=== PATIENT | female | born 1975 | race Caucasian/White ===

== ENCOUNTER 2019-11-29 09:39 | Emergency (ER) | payer MEDICAID, SELFPAY ==
[2019-11-29 10:06] VITALS: BP 118/72; PULSE 87; RESP 18; TEMP 36.8; O2SAT 98; BMI 29.0
--- NOTE | 2019-11-29 10:08 | ED_ITS ---
HPI - Abdominal Pain General Chief Complaint: Abdominal Pain Stated Complaint: FLANK PAIN Time Seen by Provider: 11/29/19 10:08 Source: patient Mode of arrival: ambulatory Limitations: no limitations History of Present Illness MD elicited complaint: flank pain Pertinent past history: kidney stones Onset (ago): week(s) (2) Pain Consistency: constant Location: R flank Severity: severe Quality: sharp Radiation: none Migration to: no migration Exacerbating factors: nothing Relieving factors: nothing Associated symptoms: nausea Treatments prior to arrival: NSAIDs Related Data Previous Rx's Medication Instructions Recorded hydrocodone-acetaminophen 1 tab PO Q8H PRN #7 tab 11/29/19 Allergies Allergy/AdvReac Type Severity Reaction Status Date / Time erythromycin base Allergy Severe THROAT Unverified 11/14/19 15:14 [Erythromycin Base] CLOSES melon Allergy Severe SHORTNESS Unverified 11/14/19 15:14 OF BREATH penicillin G [Penicillin G] Allergy Severe THROAT Unverified 11/14/19 15:14 CLOSES latex [Latex] Allergy Mild BLISTERS Unverified 11/14/19 15:14 adhesive tape Allergy Unknown RASH Unverified 11/14/19 15:14 cephalexin [Keflex] Allergy Unknown Verified 01/10/17 00:00 duloxetine [From CYMBALTA] Allergy Unknown UNKNOWN Unverified 11/14/19 15:14 lithium [LITHIUM] Allergy Unknown RASH Unverified 11/14/19 15:14 methylphenidate [Ritalin] Allergy Unknown Verified 01/10/17 00:00 penicillin V Allergy Unknown Unverified 12/11/18 00:00 Sulfa (Sulfonamide Allergy Unknown Unverified 12/11/18 00:00 Antibiotics) meperidine [From Demerol] AdvReac Mild VIOLENT Unverified 11/14/19 15:14 BEHAVIOR prochlorperazine AdvReac Mild WEAKNESS Unverified 11/14/19 15:14 [From Compazine] sulfamethoxazole AdvReac Mild VOMITING Unverified 11/14/19 15:14 [From Bactrim] trimethoprim [From Bactrim] AdvReac Mild VOMITING Unverified 11/14/19 15:14 From KEFLEX Allergy Severe SHORTNESS Uncoded 11/14/19 15:14 OF BREATH Erythrocin Allergy Unknown Uncoded 12/11/18 00:00 Erythromycin Allergy Unknown Uncoded 01/10/17 00:00 From Ritalin Allergy Unknown MANIC Uncoded 11/14/19 15:14 REACTION Latex Allergy Unknown Uncoded 01/10/17 00:00 Latex Gloves Allergy Unknown Uncoded 12/11/18 00:00 Homeland Carbonate Allergy Unknown Uncoded 01/10/17 00:00 [place] Citrate Allergy Unknown Uncoded 12/11/18 00:00 methatrexi Allergy Unknown Uncoded 01/10/17 00:00 tape, adhesive Allergy Unknown Uncoded 01/10/17 00:00 From Ginseng Edge AdvReac Unknown SHORTNESS Uncoded 11/14/19 15:14 OF BREATH Review of Systems Review of Systems Constitutional : No Weight loss, No Fever, No Chills ENT/Mouth : No sore throat, No Rhinorrhea Eyes: No Swelling, No Redness Cardiovascular : No Chest Pain, No SOB, NoEdema Respiratory : No Cough, No Sputum, No Wheezing Gastrointestinal : Positive Nausea, Positive Vomiting, no Diarrhea, positive abdominal Pain, No Hematochezia, No Melena Genitourinary : No Dysuria, No Urinary Frequency, positive Hematuria, pos Urgency Musculoskeletal : No joint pain, No Myalgias, No Joint Swelling Skin : No Skin Lesions, No rash Neuro : No Weakness, No Numbness, No Dizziness, No Headache Psych : No Anxiety/Panic, No Depression Heme/Lymph: No Bruising, No Lymphadenopathy Endocrine : No Polyuria, No Polydipsia All other systems reviewed and are negative. Physical Exam Vital Signs and I&O and Narrative: Vital Signs and I&O: Vital Signs Temp 98.3 F 11/29/19 10:06 Pulse 87 11/29/19 10:06 Resp 18 11/29/19 10:06 BP 118/72 11/29/19 10:06 Pulse Ox 98 11/29/19 10:06 Intake & Output 11/28/19 11/29/19 11/29/19 18:59 06:59 18:59 Intake Total 83.25 / 83.25 Balance 83.25 / 83.25 Weight 94.602 kg Intake: Intake, IV Amoun t 83.25 / 83.25 0.9 % Sodium C hloride 1,000 ml 83.25 / 83.25 @ 999 mls/hr I VCONT .Q1H1M [facility] Rx#:[id number] Body Mass Index 29.0 Appearance: Alert. Oriented X3. in pain mild acute distress. Eyes: Pupils equal, round and reactive to light. ENT: Pharynx normal. Neck: Normal inspection. Neck supple. CVS: Normal heart rate and rhythm. Pulses normal. Respiratory: No respiratory distress. Breath sounds normal. Abdomen: Soft and moderate R sided and R CVA ttp Skin: Skin warm and dry. Normal skin color. Normal skin turgor. Extremities: No lower extremity edema. No lower extremity edema. Neuro: Oriented X 3. No motor deficit. No sensory deficit. Course Reevaluation(s) Reevaluation #1: no acute findings stable for DC MDM - Abdominal Pain MDM Narrative Medical decision making narrative: patient with R sided flank pain recent stone R sided 2mm UVJ here with persistent pain n/v - will need repeat imaging and IV morphine for pain, dispo per results and findings Lab Data Result diagrams: 11/29/19 10:24 11/29/19 10:24 Labs: Lab Results 11/29/19 11/29/19 11/29/19 Range/Units 10:24 10:24 10:24 WBC 3.6 L (4.8-10.8) X10*3/uL RBC 4.10 L (4.20-5.50) X10*6/uL Hgb 13.3 (12.0-16.0) g/dl Hct 38.8 (37-47) % MCV 94.6 (80-98) fL MCH 32.4 (27.0-33.0) pg MCHC 34.3 (31.0-35.0) g/dl RDW 13.2 (11.0-16.0) % Plt Count 309 (160-400) X10*3/uL MPV 10.1 (9.4-12.3) fL Immature Gran % (Auto) 0.3 (0.0-0.4) % Neut % (Auto) 32.3 L (45-73) % Lymph % (Auto) 55.0 H (20-40) % [place] % (Auto) 9.4 (2-11) % Eos % (Auto) 2.2 (0-4) % Baso % (Auto) 0.8 (0-2) % Neut # (Auto) 1.2 L (2.0-8.3) X10*3/uL Lymph # (Auto) 2.0 (1.2-4.9) X10*3/uL [place] # (Auto) 0.3 (0.1-1.2) X10*3/uL Eos # (Auto) 0.1 (0.0-0.4) X10*3/uL Baso # (Auto) 0.0 (0.0-0.2) X10*3/uL Abs Immat Gran (auto) 0.01 (0.00-0.03) X10*3/uL Absolute Nucleated RBC 0.000 (0.0-0.012) X10*3/uL Nucleated RBC % (auto) 0.0 (0.0-0.2) /100WBC Hold Blue Top SEE NOTE Sodium (135-145) mmol/L Potassium (3.3-5.1) mmol/l Chloride (96-108) mmol/L Carbon Dioxide (22-29) mmol/L Anion Gap (12-20) BUN (9-16) mg/dL Creatinine (0.5-1.4) mg/dL Estim Creat Clear Calc Estimated GFR Random Glucose (60-115) mg/dL Calcium (8.4-10.2) mg/dL Magnesium (1.6-2.6) mg/dL Total Bilirubin (0.0-1.0) mg/dL Direct Bilirubin (0.0-0.5) mg/dL AST (5-31) U/L ALT (0-31) U/L Alkaline Phosphatase (39-117) U/L Total Protein (6.5-8.0) g/dL Albumin (3.5-5.0) g/dL Lipase (8-78) U/L Urine Color YELLOW Urine Appearance HAZY Urine pH 5.5 (5.0-8.0) Ur Specific [place] >= 1.030 H (1.005-1.025) Urine Protein NEG (NEG-TRACE) MG/DL Urine Glucose (UA) NEG (NEG) MG/DL Urine Ketones 5 (NEG) MG/DL Urine Blood NEG (NEG) Urine Nitrite NEG (NEG) Ur Leukocyte Esterase NEG (NEG) 11/29/19 Range/Units 10:24 WBC (4.8-10.8) X10*3/uL RBC (4.20-5.50) X10*6/uL Hgb (12.0-16.0) g/dl Hct (37-47) % MCV (80-98) fL MCH (27.0-33.0) pg MCHC (31.0-35.0) g/dl RDW (11.0-16.0) % Plt Count (160-400) X10*3/uL MPV (9.4-12.3) fL Immature Gran % (Auto) (0.0-0.4) % Neut % (Auto) (45-73) % Lymph % (Auto) (20-40) % [place] % (Auto) (2-11) % Eos % (Auto) (0-4) % Baso % (Auto) (0-2) % Neut # (Auto) (2.0-8.3) X10*3/uL Lymph # (Auto) (1.2-4.9) X10*3/uL [place] # (Auto) (0.1-1.2) X10*3/uL Eos # (Auto) (0.0-0.4) X10*3/uL Baso # (Auto) (0.0-0.2) X10*3/uL Abs Immat Gran (auto) (0.00-0.03) X10*3/uL Absolute Nucleated RBC (0.0-0.012) X10*3/uL Nucleated RBC % (auto) (0.0-0.2) /100WBC Hold Blue Top Sodium 140 (135-145) mmol/L Potassium 4.1 (3.3-5.1) mmol/l Chloride 110 H (96-108) mmol/L Carbon Dioxide 22 (22-29) mmol/L Anion Gap 12 (12-20) BUN 8 L (9-16) mg/dL Creatinine 0.92 (0.5-1.4) mg/dL Estim Creat Clear Calc 98.9 Estimated GFR > 60 Random Glucose 107 (60-115) mg/dL Calcium 9.4 (8.4-10.2) mg/dL Magnesium 1.9 (1.6-2.6) mg/dL Total Bilirubin 0.5 (0.0-1.0) mg/dL Direct Bilirubin 0.2 (0.0-0.5) mg/dL AST 22 (5-31) U/L ALT 29 (0-31) U/L Alkaline Phosphatase 54 (39-117) U/L Total Protein 6.6 (6.5-8.0) g/dL Albumin 4.4 (3.5-5.0) g/dL Lipase 20 (8-78) U/L Urine Color Urine Appearance Urine pH (5.0-8.0) Ur Specific [place] (1.005-1.025) Urine Protein (NEG-TRACE) MG/DL Urine Glucose (UA) (NEG) MG/DL Urine Ketones (NEG) MG/DL Urine Blood (NEG) Urine Nitrite (NEG) Ur Leukocyte Esterase (NEG) Discharge Plan Discharge Clinical Impression: Acute flank pain, Renal colic on right side Patient Disposition: Home, Self-Care Instructions: Renal Colic (ED) Additional Instructions: please follow up with urologist as scheduled Prescriptions: New hydrocodone-acetaminophen 5-325 mg tablet 1 tab PO Q8H PRN (Reason: pain) Qty: 7 RF: 0 PMFSH Past Medical History Attestation statement: The following information was validated with the patient. Medical History Bipolar 1 disorder Interstitial cystitis Irritable bowel Lupus Rheumatoid arthritis Surgical History H/O: hysterectomy Social History Social History Alcohol intake: unknown Smoking Status: Never smoker Smoked in Last 30 Days: No Use of substances other than those prescribed or required for medical reasons: No Advance Directives: No Advance Directives Information Provided: Yes
--- NOTE | 2019-11-29 10:14 | CT_ITS ---
EXAMINATION: CT ABDOMEN AND PELVIS WITHOUT CONTRAST CLINICAL INFORMATION: Right flank pain. COMPARISON: CT abdomen and pelvis dated 11/16/2019. TECHNIQUE: Multidetector volumetric imaging was performed from the superior aspect of the liver through the pubic symphysis. Sagittal and coronal reformatted images were obtained on the technologist's workstation. This CT examination was performed using dose optimization techniques as appropriate, variously including the following: *Automated exposure control *Adjustment of mA and/or kV according to patient size (this includes techniques or standardized protocols for targeted exams where dose is matched to indication/reason for exam; i.e. extremities or head) *Use of iterative reconstruction technique DLP: 735 mGy-cm FINDINGS: LUNG BASES: The visualized lung bases are unremarkable. LIVER, GALLBLADDER, AND BILIARY TREE: The liver is normal in size, shape, and attenuation. No focal hepatic lesion or biliary ductal dilatation is present. The gallbladder is unremarkable with no evidence of radiopaque gallstones, gallbladder wall thickening, or obvious pericholecystic inflammatory changes. PANCREAS: Unremarkable. SPLEEN: Unremarkable. ADRENAL GLANDS: Unremarkable. KIDNEYS AND URETERS: The kidneys are normal in size, shape, and attenuation. There are approximately 3 right renal upper and lower pole 1-2 mm nonobstructing calculi. There is a nonobstructing 1-2 mm mid left renal calculus. No ureteric calculus or obstructive uropathy is seen bilaterally. There is mild nonspecific perinephric stranding, left greater than right. BLADDER: Unremarkable. GASTROINTESTINAL TRACT: The small and large bowel are unremarkable. The appendix is unremarkable. ABDOMINAL WALL: There is a very small fat-containing umbilical hernia. LYMPH NODES: Normal. VASCULAR: Unremarkable. PELVIC VISCERA: There has been a prior hysterectomy. No pelvic mass, free fluid lymphadenopathy is seen. OSSEOUS STRUCTURES: There is mild spondylosis at T12-L1. No acute or aggressive osseous abnormality is seen. IMPRESSION: 1. There are tiny nonobstructing bilateral renal calculi. No ureteric calculus or obstructive uropathy seen bilaterally. 2. No bowel obstruction, free intraperitoneal or abscess is seen. There is no appendicitis or diverticulitis. 3. No abdominopelvic mass, free fluid or lymphadenopathy is seen.
[2019-11-29] MEDS: 0.9 % Sodium Chloride 1,000 ML 999 ML IVCONT (10:30)
[2019-11-29 10:31] LABS: MANUAL DIFF FLAG NO
[2019-11-29] MEDS: ondansetron HCL 4 MG/2 ML VIAL IVPUSH (10:31)
[2019-11-29 10:34] LABS: Glucose Urine UA NEG (NEG); Leukocyte Esterase Urine NEG (NEG); Nitrite Urine NEG (NEG); PH 5.5 (5.0-8.0); Specific Gravity - Urine >= 1.030 (1.005-1.025); Urine Blood NEG (NEG); Urine Ketones 5 MG/DL (NEG); Urine Protein NEG (NEG-TRACE)
[2019-11-29 10:36] LABS: Appearance Urine HAZY; Color Urine YELLOW
[2019-11-29 10:41] LABS: Basophils Percent Auto 0.8 % (0-2); Eosinophils Absolute Auto 0.1 X10*3/uL (0.0-0.4); Eosinophils Percent Auto 2.2 % (0-4); Hematocrit 38.8 % (37-47); Hemoglobin 13.3 g/dl (12.0-16.0); Imm Gran Abs Auto 0.01 X10*3/uL (0.00-0.03); Imm Gran Pct Auto 0.3 % (0.0-0.4); Mean Corpuscular HGB Conc 34.3 g/dl (31.0-35.0); Mean Corpuscular Hemoglobin 32.4 pg (27.0-33.0); Mean Corpuscular Volume 94.6 fL (80-98); Mean Platelet Volume 10.1 fL (9.4-12.3); Monocytes Absolute Auto 0.3 X10*3/uL (0.1-1.2); Monocytes Percent Auto 9.4 % (2-11); Neutrophils Absolute Auto 1.2 X10*3/uL (2.0-8.3); Neutrophils Percent Auto 32.3 % (45-73); Platelet Count 309 X10*3/uL (160-400); Red Cell Distribution Width 13.2 % (11.0-16.0); White Blood Count 3.6 X10*3/uL (4.8-10.8)
[2019-11-29 11:02] LABS: Alanine Aminotransferase 29 U/L (0-31); Albumin Level 4.4 g/dL (3.5-5.0); Alkaline Phosphatase 54 U/L (39-117); Anion Gap 12 (12-20); Aspartate Amino Transferase 22 U/L (5-31); Bilirubin Direct 0.2 mg/dL (0.0-0.5); Bilirubin Total 0.5 mg/dL (0.0-1.0); Blood Urea Nitrogen 8 mg/dL (9-16); Calcium 9.4 mg/dL (8.4-10.2); Carbon Dioxide 22 mmol/L (22-29); Chloride 110 mmol/L (96-108); Creatinine Clr Calc Pharmacy 98.9; Estimated Glomerular Filt Rate > 60; Glucose Random 107 mg/dL (60-115); Lipase 20 U/L (8-78); Magnesium 1.9 mg/dL (1.6-2.6); Potassium 4.1 mmol/l (3.3-5.1); Sodium 140 mmol/L (135-145); Total Protein 6.6 g/dL (6.5-8.0)
== END 2019-11-29 12:39 | disposition home or self-care (01) ==
PROVIDERS: Emergency Provider Emergency Medicine; PCP Physician Assistant Surgical
DX: N23 Unspecified renal colic (principal); Z87.442 Personal history of urinary calculi
CPT/HCPCS: 36415; 74176; 80048; 80076; 81003; 83690; 83735; 85025; 96361; 96374; 96375; 99284; J2270; J2405

== ENCOUNTER 2021-10-30 09:13 | Emergency (ER) | payer MEDICAID, SELFPAY ==
[2021-10-30 09:20] VITALS: BP 134/79; PULSE 70; RESP 20; TEMP 35.8; O2SAT 97; BMI 31.4
== END 2021-10-30 11:06 | disposition left against medical advice (07) ==
PROVIDERS: Emergency Provider Emergency Medicine; PCP Family Medicine
DX: S99.922A Unspecified injury of left foot, initial encounter (principal); W22.09XA Striking against other stationary object, initial encounter; Y93.89 Activity, other specified; Y92.010 Kitchen of single-family (private) house as the place of occurrence of the external cause; Y99.9 Unspecified external cause status
CPT/HCPCS: 99281

== ENCOUNTER 2021-12-13 09:20 | Emergency (ER) | payer MEDICAID, SELFPAY ==
--- NOTE | ~2021-12-13 | XR_ITS ---
EXAMINATION: XR CHEST CLINICAL INFORMATION: Cough COMPARISON: Chest radiographs 11/02/2017, 07/04/2016 TECHNIQUE: 2 views of the chest were obtained. FINDINGS: The lungs are clear. There is no airspace consolidation or groundglass opacity or effusion. Heart size normal. Vascularity normal. The hilar and mediastinal contours and bony structures are unremarkable. XR/XR chest 2V IMPRESSION: Unremarkable examination.
[2021-12-13 09:29] VITALS: BP 126/75; PULSE 74; RESP 18; TEMP 36.4; O2SAT 97; BMI 32.1
--- NOTE | 2021-12-13 09:48 | ED_ITS ---
HPI - General Adult General Chief complaint: Upper Respiratory Symptoms Stated complaint: Pneumonia Time Seen by Provider: 12/13/21 09:37 Source: patient Mode of arrival: ambulatory Limitations: no limitations History of Present Illness HPI narrative: Patient is a 46 year old assigned female at with a history of RA presenting to the emergency department today with a cough and sinus pressure. Patient states that she gets infusions for RA and they make her more prone to getting sick. Patient states that a week ago, her boyfriend came home with a head cold and gave it to her and it just has not gone away. Patient denies any dizziness, lightheadedness, abdominal pain, nausea, vomiting, fever, chills, blurry vision, double vision, loss of vision, chest pain, difficulty breathing, shortness of breath, back pain, night sweats, pain with urination, increased urinary frequency, increased urinary urgency, blood in her urine or stool, syncope or a near syncopal episode, recent trauma or falls, bowel incontinence, bladder incontinence, bowel retention, bladder retention, or any other complaints at this time. Onset (ago): week(s) (1) Severity: mild Severity scale (1-10): 3 Relieving factors: none Exacerbating factors: none Associated symptoms: cough Treatments prior to arrival: none Related Data Previous Rx's Medication Instructions Recorded hydrocodone 5 mg-acetaminophen 325 1 tab PO Q8H PRN pain #7 tabs 11/28/ mg tablet albuterol sulfate 90 mcg/actuation 1 inh inhalation QID PRN shortness 12/13/21 aerosol inhaler of breath or wheezing #8.5 grams doxycycline hyclate 100 mg tablet 100 mg PO BID 7 days #14 tabs 12/13/21 prednisone 20 mg tablet 20 mg PO DAILY 12 days #26 tabs 12/13/21 Allergies Allergy/AdvReac Type Severity Reaction Status Date / Time erythromycin base Allergy Severe THROAT Unverified 11/14/19 15:14 [Erythromycin Base] CLOSES melon Allergy Severe SHORTNESS Unverified 11/14/19 15:14 OF BREATH penicillin G [Penicillin G] Allergy Severe THROAT Unverified 11/14/19 15:14 CLOSES latex [Latex] Allergy Mild BLISTERS Unverified 11/14/19 15:14 adhesive tape Allergy Unknown RASH Unverified 11/14/19 15:14 cephalexin [Keflex] Allergy Unknown Verified 01/10/17 00:00 duloxetine [From CYMBALTA] Allergy Unknown UNKNOWN Unverified 11/14/19 15:14 lithium [LITHIUM] Allergy Unknown RASH Unverified 11/14/19 15:14 methylphenidate [Ritalin] Allergy Unknown Verified 01/10/17 00:00 penicillin V Allergy Unknown Unverified 12/11/18 00:00 Sulfa (Sulfonamide Allergy Unknown Unverified 12/11/18 00:00 Antibiotics) meperidine [From Demerol] AdvReac Mild VIOLENT Unverified 11/14/19 15:14 BEHAVIOR prochlorperazine AdvReac Mild WEAKNESS Unverified 11/14/19 15:14 [From Compazine] sulfamethoxazole AdvReac Mild VOMITING Unverified 11/14/19 15:14 [From Bactrim] trimethoprim [From Bactrim] AdvReac Mild VOMITING Unverified 11/14/19 15:14 From KEFLEX Allergy Severe SHORTNESS Uncoded 11/14/19 15:14 OF BREATH Erythrocin Allergy Unknown Uncoded 12/11/18 00:00 Erythromycin Allergy Unknown Uncoded 01/10/17 00:00 From Ritalin Allergy Unknown MANIC Uncoded 11/14/19 15:14 REACTION Latex Allergy Unknown Uncoded 01/10/17 00:00 Latex Gloves Allergy Unknown Uncoded 12/11/18 00:00 Thermal Carbonate Allergy Unknown Uncoded 01/10/17 00:00 Thermal Citrate Allergy Unknown Uncoded 12/11/18 00:00 methatrexi Allergy Unknown Uncoded 01/10/17 00:00 tape, adhesive Allergy Unknown Uncoded 01/10/17 00:00 From Ginseng Edge AdvReac Unknown SHORTNESS Uncoded 11/14/19 15:14 OF BREATH Review of Systems Constitutional: Constitutional: Reports no additional constitutional complaints, Denies chills, Denies fever(s) and Denies night sweats Eyes: Eyes: Reports no additional eye complaints, Denies blurry vision, Denies change in vision, Denies diplopia, Denies eye discharge, Denies loss of vision and Denies eye pain ENT: Denies dizziness, Reports nasal congestion and Reports sinus pressure Cardiovascular: Cardiovascular: Reports no additional cardiovascular c omplaints, Denies chest pain, Denies lightheadedness, Denies Loss of Consciousness and Denies dyspnea Respiratory: Respiratory: Reports no additional respiratory complaints, Reports cough and Denies dyspnea Gastrointestinal: Gastrointestinal: Reports no additional gastrointestinal complaints, Denies abdominal pain, Denies melena, Denies hematochezia, Denies change in bowel habits and Denies change in stool character Genitourinary: Genitourinary: Denies hematuria, Denies urinary frequency, Denies dysuria, Denies urinary incontinence, Denies urinary hesitancy and Denies urinary urgency Musculoskeletal: Musculoskeletal: Reports no additional musculoskeletal complaints, Denies numbness and Denies tingling Neurologic: Denies dizziness, Denies loss of vision, Denies numbness and Denies tingling Psychiatric: Psychiatric: Reports no additional psychiatric complaints Endocrine: Endocrine: Reports no additional endocrine complaints Hematologic/Lymphatic: Hematologic/Lymphatic: Reports no additional hematologic/lymphatic complaints Allergic/Immunologic: Allergic/Immunologic: Reports no additional allergic/immunologic complaints [facility] [place] Past Medical History Attestation statement: The following information was validated with the patient. Source: old records reviewed Medical History Bipolar 1 disorder Interstitial cystitis Irritable bowel Lupus Rheumatoid arthritis Surgical History H/O: hysterectomy Social History Social History Alcohol intake: unknown Advance Directives: No Advance Directives Information Provided: No Physical Exam ED Vital Signs: Vital Signs - 24 hr 12/13/21 09:29 Temperature 97.6 F Pulse Rate 74 Respiratory Rate 18 Blood Pressure 126/75 Pulse Oximetry 97 Oxygen Delivery Method Room Air BMI result Body Mass Index 32.1 Const General: cooperative, no acute distress, alert and awake Nutritional Appearance: well nourished Orientation/consciousness: patient oriented x3 Limitations: no limitations HENMT Head: Yes normal to inspection and Yes atraumatic Ears: hearing grossly normal bilaterally and external ears normal General nose exam: Normal external nose present, no nasal discharge noted and no epistaxis Face and sinus: Yes normal facial exam, No abrasion and No laceration Mouth: Normal oral and palatal mucosa present, no drooling and no muffled voice Eyes General: appearance normal, both eyes and all related structures Periorbital: periorbital findings normal Eyelids: Yes eyelids normal Conjunctivae: conjunctivae normal Pupils: Equal, round and reactive pupils present EOM: EOMs intact bilaterally Neck Neck: Yes normal visual inspection, Yes full ROM and Yes no lymphadenopathy Chest Chest palpation & inspection: normal inspection of the chest Resp Effort & Inspection: normal respiratory effort and able to speak in complete se ntences Auscultation: clear to auscultation bilaterally Cardio Rate: regular rate Rhythm: regular rhythm GI Inspection: Yes normal to inspection Neuro General: patient oriented x3 and moves all extremities Cranial nerves: Yes Equal, round and reactive pupils present Cognition (Neuro): normal cognition Motor exam (neuro): 5/5 motor strength present throughout Sensory Exam: Normal double simultaneous stimulation for sensation Coordination: [id number] test normal Extrem General: Yes normal to inspection, Yes full ROM and Yes capillary refill normal Psych Appearance: grossly normal Mental Status: mental status grossly normal Affect: normal affect Attitude: cooperative Thought process: Normal thought process present Thought content: Normal thought content present Insight: Good insight present (Psych) Medical Decision Making MDM Narrative Medical decision making narrative: Patient is a 46 year old assigned female at with a history of RA presenting to the emergency department today with a cough and sinus pressure. Patient's physical exam was unremarkable. Patient's COVID-19, RSV, flu swab is pending. Patient requested to leave before her COVID/Flu/RSV swab results were in. Patient's chest x-ray showed no acute process. I explained my physical exam findings as well as all test results to the patient. I answered all questions asked by the patient. I stressed the importance of the patient taking her medication as prescribed. I stressed the importance of the patient following up with her primary care provider. I stressed the importance of the patient returning to the emergency department immediately if her symptoms were to worsen or if she were to develop any dizziness, shortness of breath, difficulty breathing, chest pain, blurry vision, loss of vision, nausea, vomiting, abdominal pain, fever, chills, back pain, or any other complaints. Patient verbalized agreement and understanding with this treatment plan and discharge. Medical Records Medical records reviewed: Yes I reviewed the patient's medical records. Lab Data Lab results reviewed: Yes I reviewed the patient's lab results. Imaging Data Chest x-ray: Attestation: I personally reviewed and interpreted this imaging study as follows: My impression: No acute process. Radiologist's impression: EXAMINATION: XR CHEST CLINICAL INFORMATION: Cough COMPARISON: Chest radiographs 11/02/2017, 07/04/2016 TECHNIQUE: 2 views of the chest were obtained. FINDINGS: The lungs are clear. There is no airspace consolidation or groundglass opacity or effusion. Heart size normal. Vascularity normal. The hilar and mediastinal contours and bony structures are unremarkable. XR/XR chest 2V IMPRESSION: Unremarkable examination. Dictated By: Vj Pathak MD Signed By: Electronically signed by Vj Pathak MD 12/13/21 1010 Discharge Plan Discharge Clinical Impression: Upper respiratory infection Patient Disposition: Home, Self-Care Instructions: Upper Respiratory Infection (ED) Additional Instructions: Follow up with your primary care provider. Return to the emergency department immediately if your symptoms worsen or if you develop any dizziness, shortness of breath, difficulty breathing, chest pain, blurry vision, loss of vision, nausea, vomiting, abdominal pain, fever, chills, back pain, or any other complaints. Prescriptions: New prednisone 20 mg tablet 20 mg PO DAILY 12 Days Qty: 26 0RF Rx Instructions: Take 3 tablets for 5 days THEN; Take 2 tablets for 4 days THEN; Take 1 tablet for 3 days doxycycline hyclate 100 mg tablet 100 mg PO BID 7 Days Qty: 14 0RF albuterol sulfate 90 mcg/actuation HFA aerosol inhaler 1 inh inhalation QID PRN (Reason: shortness of breath or wheezing) Qty: 8.5 0RF No Action hydrocodone-acetaminophen 5-325 mg tablet 1 tab PO Q8H PRN (Reason: pain) Qty: 7 0RF Referrals: Hemant Li MD [Primary Care Provider] - Stand Alone Forms: Work/School Release Print Language: Mozambican
[2021-12-13 12:06] LABS: Influenza A PCR NEGATIVE (Negative); Influenza B PCR NEGATIVE (Negative); Resp Syncy Virus RNA Qual PCR NEGATIVE (Negative); SARS COV2 PCR INHOUSE NEGATIVE (Negative)
== END 2021-12-13 10:48 | disposition home or self-care (01) ==
PROVIDERS: Physician Assistant Medical; Emergency Provider Emergency Medicine; PCP Family Medicine
DX: J06.9 Acute upper respiratory infection, unspecified (principal); Z20.822 Contact with and (suspected) exposure to COVID-19; M06.9 Rheumatoid arthritis, unspecified
CPT/HCPCS: 0241U; 71046; 99283

== ENCOUNTER 2022-03-28 15:44 | Emergency (ER) | payer MEDICAID, SELFPAY ==
[2022-03-28 15:49] VITALS: BP 146/85; PULSE 85; RESP 18; TEMP 36.6; O2SAT 98; BMI 33.0
--- NOTE | 2022-03-28 15:53 | ED_ITS ---
HPI - Chest Pain General Chief Complaint: Dyspnea Stated Complaint: covid + chest pressure sob Related Data Previous Rx's Medication Instructions Recorded hydrocodone 5 mg-acetaminophen 325 1 tab PO Q8H PRN pain #7 tabs 11/28/ mg tablet albuterol sulfate 90 mcg/actuation 1 inh inhalation QID PRN shortness 12/13/21 aerosol inhaler of breath or wheezing #8.5 grams doxycycline hyclate 100 mg tablet 100 mg PO BID 7 days #14 tabs 12/13/21 prednisone 20 mg tablet 20 mg PO DAILY 12 days #26 tabs 12/13/21 Allergies Allergy/AdvReac Type Severity Reaction Status Date / Time erythromycin base Allergy Severe THROAT Unverified 11/14/19 15:14 [Erythromycin Base] CLOSES melon Allergy Severe SHORTNESS Unverified 11/14/19 15:14 OF BREATH penicillin G [Penicillin G] Allergy Severe THROAT Unverified 11/14/19 15:14 CLOSES latex [Latex] Allergy Mild BLISTERS Unverified 11/14/19 15:14 adhesive tape Allergy Unknown RASH Unverified 11/14/19 15:14 cephalexin [Keflex] Allergy Unknown Verified 01/10/17 00:00 duloxetine [From CYMBALTA] Allergy Unknown UNKNOWN Unverified 11/14/19 15:14 lithium [LITHIUM] Allergy Unknown RASH Unverified 11/14/19 15:14 methylphenidate [Ritalin] Allergy Unknown Verified 01/10/17 00:00 penicillin V Allergy Unknown Unverified 12/11/18 00:00 Sulfa (Sulfonamide Allergy Unknown Unverified 12/11/18 00:00 Antibiotics) meperidine [From Demerol] AdvReac Mild VIOLENT Unverified 11/14/19 15:14 BEHAVIOR prochlorperazine AdvReac Mild WEAKNESS Unverified 11/14/19 15:14 [From Compazine] sulfamethoxazole AdvReac Mild VOMITING Unverified 11/14/19 15:14 [From Bactrim] trimethoprim [From Bactrim] AdvReac Mild VOMITING Unverified 11/14/19 15:14 From KEFLEX Allergy Severe SHORTNESS Uncoded 11/14/19 15:14 OF BREATH Erythrocin Allergy Unknown Uncoded 12/11/18 00:00 Erythromycin Allergy Unknown Uncoded 01/10/17 00:00 From Ritalin Allergy Unknown MANIC Uncoded 11/14/19 15:14 REACTION Latex Allergy Unknown Uncoded 01/10/17 00:00 Latex Gloves Allergy Unknown Uncoded 12/11/18 00:00 [place] Carbonate Allergy Unknown Uncoded 01/10/17 00:00 [place] Citrate Allergy Unknown Uncoded 12/11/18 00:00 methatrexi Allergy Unknown Uncoded 01/10/17 00:00 tape, adhesive Allergy Unknown Uncoded 01/10/17 00:00 From Ginseng Edge AdvReac Unknown SHORTNESS Uncoded 11/14/19 15:14 OF BREATH PMFSH Past Medical History Medical History Bipolar 1 disorder Interstitial cystitis Irritable bowel Lupus Rheumatoid arthritis Surgical History H/O: hysterectomy Social History Social History Alcohol intake: unknown Advance Directives: No Advance Directives Information Provided: No Physical Exam Vital Signs: Vital Signs: Last Vital Signs Temp 97.9 F 03/28/22 15:49 Pulse 85 03/28/22 15:49 Resp 18 03/28/22 15:49 BP 146/85 H 03/28/22 15:49 Pulse Ox 98 03/28/22 15:49 O2 Del Method 03/28/22 15:49 BMI result Body Mass Index 33.0 Course Course Course Narrative: This is rapid medical exam. Deferred additional HPI, ROS, PE to primary provider. 47 yo female with history of RA, PTSD here with cough, congestion, chest discomfort, fever max temp 102.3, diff breathing. Tested positive for COVID at home on Monday. Will obtain labs, EKG, CXR, covid screen. VSS Discharge Plan Discharge Clinical Impression: Chest pain Patient Disposition: Elopement Prescriptions: No Action hydrocodone-acetaminophen 5-325 mg tablet 1 tab PO Q8H PRN (Reason: pain) Qty: 7 0RF prednisone 20 mg tablet 20 mg PO DAILY 12 Days Qty: 26 0RF Rx Instructions: Take 3 tablets for 5 days THEN; Take 2 tablets for 4 days THEN; Take 1 tablet for 3 days doxycycline hyclate 100 mg tablet 100 mg PO BID 7 Days Qty: 14 0RF albuterol sulfate 90 mcg/actuation HFA aerosol inhaler 1 inh inhalation QID PRN (Reason: shortness of breath or wheezing) Qty: 8.5 0RF Interventions: ED Discharge Assessment Last Done: 03/28/22 21:15 Discharge Date/Time: 03/28/22 21:16
== END 2022-03-28 21:16 | disposition left against medical advice (07) ==
PROVIDERS: Emergency Provider Student in an Organized Health Care Education/Training Program; PCP Family Medicine
DX: R07.89 Other chest pain (principal); U07.1 COVID-19; R06.02 Shortness of breath; Z79.899 Other long term (current) drug therapy
CPT/HCPCS: 99282

== ENCOUNTER 2022-04-10 09:06 | Emergency (ER) | payer MEDICAID, SELFPAY ==
--- NOTE | ~2022-04-10 | XR_ITS ---
EXAMINATION: XR KNEE, LEFT CLINICAL INFORMATION: Left knee pain. COMPARISON: Left knee radiographs dated 06/09/2018. TECHNIQUE: AP and lateral views of the left knee. FINDINGS: Bones and soft tissues are normal. No fracture or joint effusion. Alignment is anatomic. Joint spaces are well maintained. No abnormal soft tissue calcification. XR/XR knee LT 2V IMPRESSION: Unremarkable examination.
--- NOTE | 2022-04-10 09:25 | ED_ITS ---
HPI - General Adult General Chief complaint: Extremity Injury, Lower Stated complaint: L knee inj Time Seen by Provider: 04/10/22 09:25 Source: patient Mode of arrival: ambulatory Limitations: no limitations History of Present Illness HPI narrative: Patient is a 47 year old assigned female at with a history of PTSD presenting to the emergency department today with left knee pain. Patient states that last night she was trying to break up a fight between her dog and cat when she turned around and is now having left knee pain. Patient states that her PTSD is also flaring up. Patient states that she used to take clonapin for her PTSD and a dose of that would help. Patient denies any dizziness, lightheadedness, abdominal pain, nausea, vomiting, fever, chills, blurry vision, double vision, loss of vision, chest pain, difficulty breathing, shortness of breath, back pain, night sweats, pain with urination, increased urinary frequency, increased urinary urgency, blood in her urine or stool, syncope or a near syncopal episode, bowel incontinence, bladder incontinence, bowel retention, bladder retention, or any other complaints at this time. Onset (ago): hour(s) (14) Location: left and lower extremity Radiation: non-radiation Severity: mild Severity scale (1-10): 3 Quality: aching and dull Pain Consistency: constant Relieving factors: none Exacerbating factors: movement Associated symptoms: denies other symptoms Treatments prior to arrival: none Related Data Previous Rx's Medication Instructions Recorded hydrocodone 5 mg-acetaminophen 325 1 tab PO Q8H PRN pain #7 tabs 11/29/19 mg tablet albuterol sulfate 90 mcg/actuation 1 inh inhalation QID PRN shortness 12/13/21 aerosol inhaler of breath or wheezing #8.5 grams doxycycline hyclate 100 mg tablet 100 mg PO BID 7 days #14 tabs 12/13/21 prednisone 20 mg tablet 20 mg PO DAILY 12 days #26 tabs 12/13/21 Allergies Allergy/AdvReac Type Severity Reaction Status Date / Time erythromycin base Allergy Severe THROAT Unverified 11/14/19 15:14 [Erythromycin Base] CLOSES melon Allergy Severe SHORTNESS Unverified 11/14/19 15:14 OF BREATH penicillin G [Penicillin G] Allergy Severe THROAT Unverified 11/14/19 15:14 CLOSES latex [Latex] Allergy Mild BLISTERS Unverified 11/14/19 15:14 adhesive tape Allergy Unknown RASH Unverified 11/14/19 15:14 cephalexin [Keflex] Allergy Unknown Verified 01/10/17 00:00 duloxetine [From CYMBALTA] Allergy Unknown UNKNOWN Unverified 11/14/19 15:14 lithium [LITHIUM] Allergy Unknown RASH Unverified 11/14/19 15:14 methylphenidate [Ritalin] Allergy Unknown Verified 01/10/17 00:00 penicillin V Allergy Unknown Unverified 12/11/18 00:00 Sulfa (Sulfonamide Allergy Unknown Unverified 12/11/18 00:00 Antibiotics) meperidine [From Demerol] AdvReac Mild VIOLENT Unverified 11/14/19 15:14 BEHAVIOR prochlorperazine AdvReac Mild WEAKNESS Unverified 11/14/19 15:14 [From Compazine] sulfamethoxazole AdvReac Mild VOMITING Unverified 11/14/19 15:14 [From Bactrim] trimethoprim [From Bactrim] AdvReac Mild VOMITING Unverified 11/14/19 15:14 From KEFLEX Allergy Severe SHORTNESS Uncoded 11/14/19 15:14 OF BREATH Erythrocin Allergy Unknown Uncoded 12/11/18 00:00 Erythromycin Allergy Unknown Uncoded 01/10/17 00:00 From Ritalin Allergy Unknown MANIC Uncoded 11/14/19 15:14 REACTION Latex Allergy Unknown Uncoded 01/10/17 00:00 Latex Gloves Allergy Unknown Uncoded 12/11/18 00:00 [place] Carbonate Allergy Unknown Uncoded 01/10/17 00:00 [place] Citrate Allergy Unknown Uncoded 12/11/18 00:00 methatrexi Allergy Unknown Uncoded 01/10/17 00:00 tape, adhesive Allergy Unknown Uncoded 01/10/17 00:00 From Ginseng Edge AdvReac Unknown SHORTNESS Uncoded 11/14/19 15:14 OF BREATH Review of Systems Constitutional: Constitutional: Reports no additional constitutional complaints, Denies chills, Denies fever(s) and Denies night sweats Eyes: Eyes: Reports no additional eye complaints, Denies blurry vision, Denies change in vision, Denies diplopia, Denies eye discharge, Denies loss of vision a nd Denies eye pain ENT: Denies dizziness Cardiovascular: Cardiovascular: Reports no additional cardiovascular compla ints, Denies chest pain, Denies lightheadedness, Denies Loss of Consciousness and Denies dyspnea Respiratory: Respiratory: Reports no additional respiratory complaints and Denies dyspnea Gastrointestinal: Gastrointestinal: Reports no additional gastrointestinal complaints, Denies abdominal pain, Denies melena, Denies hematochezia, Denies change in bowel habits and Denies change in stool character Genitourinary: Genitourinary: Denies hematuria, Denies urinary frequency, Denies dysuria, Denies urinary incontinence, Denies urinary hesitancy and Denies urinary urgency Musculoskeletal: Musculoskeletal: Reports no additional musculoskeletal complaints, Denies numbness and Denies tingling Comments: left knee pain Neurologic: Denies dizziness, Denies loss of vision, Denies numbness and Denies tingling Psychiatric: Psychiatric: Reports no additional psychiatric complaints Endocrine: Endocrine: Reports no additional endocrine complaints Hematologic/Lymphatic: Hematologic/Lymphatic: Reports no additional hematologic/lymphatic complaints Allergic/Immunologic: Allergic/Immunologic: Reports no additional allergic/immunologic complaints PMFSH Past Medical History Attestation statement: The following information was validated with the patient. Source: old records reviewed and nursing notes reviewed Medical History Bipolar 1 disorder Interstitial cystitis Irritable bowel Lupus Rheumatoid arthritis Surgical History H/O: hysterectomy Social History Social History Alcohol intake: unknown Advance Directives: No Advance Directives Information Provided: No Physical Exam ED Vital Signs: Vital Signs - 24 hr 04/10/22 09:28 Temperature 97.7 F Pulse Rate 83 Respiratory Rate 17 Blood Pressure 120/80 Pulse Oximetry 97 Oxygen Delivery Method Room Air BMI result Body Mass Index 30.7 Const General: cooperative, no acute distress, alert and awake Nutritional Appearance: well nourished Orientation/consciousness: patient oriented x3 Limitations: no limitations HENMT Head: Yes normal to inspection and Yes atraumatic Ears: hearing grossly normal bilaterally and external ears normal General nose exam: Normal external nose present, no nasal discharge noted and no epistaxis Face and sinus: Yes normal facial exam, No abrasion and No laceration Mouth: Normal oral and palatal mucosa present, no drooling and no muffled voice Eyes General: appearance normal, both eyes and all related structures Periorbital: periorbital findings normal Eyelids: Yes eyelids normal Conjunctivae: conjunctivae normal Pupils: Equal, round and reactive pupils present EOM: EOMs intact bilaterally Neck Neck: Yes normal visual inspection, Yes full ROM and Yes no lymphadenopathy Chest Chest palpation & inspection: normal inspection of the chest Resp Effort & Inspection: normal respiratory effort and able to speak in complete sentences Auscultation: clear to auscultation bilaterally Cardio Rate: regular rate Rhythm: regular rhythm GI Inspection: Yes normal to inspection Neuro General: patient oriented x3 and moves all extremities Cranial nerves: Yes Equal, round and reactive pupils present Cognition (Neuro): normal cognition Motor exam (neuro): 5/5 motor strength present throughout Sensory Exam: Normal double simultaneous stimulation for sensation Coordination: [id number] test normal Extrem Other: minimal bruising and swelling present to the medial aspect of the left knee, patient unable to complete ROM secondary to pain General: Yes capillary refill normal Psych Appearance: grossly normal Mental Status: mental status grossly normal Affect: normal affect Attitude: cooperative Thought process: Normal thought process present Thought content: Normal thought content present Insight: Good insight present (Psych) Medications Administered Discontinued Medications Generic Name Dose Route Start Last Admin Trade Name Freq PRN Reason Stop Dose Admin Clonazepam 2 mg 04/10/22 09:33 04/10/22 09:40 Clonazepam 1 Mg Tablet PO 04/10/22 09:34 2 mg ONCE ONE Administration Procedures Orthopedic Splinting/Casting Injury #1: Side: left Lower Extremity Injury Location: knee Lower Extremity Immobilizer: knee immobilizer Additional Comments: patient refused crutches stating she has a walker and a cane at home. Medical Decision Making Medical Decision Making [facility] Narrative: Patient is a 47 year old assigned female at with a history of PTSD presenting to the emergency department today with left knee pain. Patient's physical exam showed minimal bruising and swelling to the left knee but was otherwise unremarkable. Patient's left knee x-ray showed no acute process. I explained my physical exam findings as well as all test results to the patient. I answered all questions asked by the patient. Patient received PO Clonazepam which she stated helped her PTSD symptoms significantly. Patient's left knee was placed in a knee immobilizer, without incident. Patient's PMS was intact prior to and after immobilizer placement. Patient refused crutches citing she had a walker and cane at home. Patient stated that she had access to the crisis line and would call it if she needed to. Patient again declined any SI or HI. I stressed the importance of the patient taking her medication as prescribed. I stressed the importance of the patient following up with her primary care provider and an orthopedic provider. I stressed the importance of the patient returning to the emergency department immediately if her symptoms were to worsen or if she were to develop any dizziness, shortness of breath, difficulty breathing, chest pain, blurry vision, loss of vision, nausea, vomiting, abdominal pain, fever, chills, back pain, or any other complaints. Patient verbalized agreement and understanding with this treatment plan and discharge. Differential Diagnosis Differential Diagnoses: The differential diagnosis associated with the presentation includes left knee injury, PTSD episode Radiology Impression Radiologist Impression: My interpretation is in agreement with the radiologist's impression of this imaging study. EXAMINATION: XR KNEE, LEFT CLINICAL INFORMATION: Left knee pain.? COMPARISON: Left knee radiographs dated 06/09/2018.? TECHNIQUE: AP and lateral views of the left knee. FINDINGS: Bones and soft tissues are normal. No fracture or joint effusion. Alignment is anatomic. Joint spaces are well maintained. No abnormal soft tissue calcification.? XR/XR knee LT 2V IMPRESSION: Unremarkable examination. ? Dictated By: Berhane Abbott MD Signed By: Electronically signed by Berhane Abbott MD 04/10/22 1004 Discharge Plan Discharge Clinical Impression: Acute knee pain Patient Disposition: Home, Self-Care Instructions: Crutch Instructions (ED), Knee Pain (ED) Additional Instructions: Follow up with your primary care provider and an orthopedic provider. Return to the emergency department immediately if your symptoms worsen or if you develop any dizziness, shortness of breath, difficulty breathing, chest pain, blurry vision, loss of vision, nausea, vomiting, abdominal pain, fever, chills, back pain, or any other complaints. Prescriptions: No Action hydrocodone-acetaminophen 5-325 mg tablet 1 tab PO Q8H PRN (Reason: pain) Qty: 7 0RF prednisone 20 mg tablet 20 mg PO DAILY 12 Days Qty: 26 0RF Rx Instructions: Take 3 tablets for 5 days THEN; Take 2 tablets for 4 days THEN; Take 1 tablet for 3 days doxycycline hyclate 100 mg tablet 100 mg PO BID 7 Days Qty: 14 0RF albuterol sulfate 90 mcg/actuation HFA aerosol inhaler 1 inh inhalation QID PRN (Reason: shortness of breath or wheezing) Qty: 8.5 0RF Referrals: [facility] [Provider Group] (Call to establish and follow up with an orthopedic provider. ) Hemant Li MD [Primary Care Provider] - Stand Alone Forms: Work/School Release Print Language: Yakut
[2022-04-10 09:28] VITALS: BP 120/80; PULSE 83; RESP 17; TEMP 36.5; O2SAT 97; BMI 30.7
[2022-04-10] MEDS: clonazePAM 1 MG TABLET 2 MG PO (09:40)
== END 2022-04-10 10:23 | disposition home or self-care (01) ==
PROVIDERS: Emergency Provider Emergency Medicine Emergency Medical Services; PCP Family Medicine
DX: S83.92XA Sprain of unspecified site of left knee, initial encounter (principal); X58.XXXA Exposure to other specified factors, initial encounter; Y93.9 Activity, unspecified; Y92.9 Unspecified place or not applicable; Y99.9 Unspecified external cause status
CPT/HCPCS: 29515; 73560; 99283

== ENCOUNTER 2022-04-11 09:14 | Emergency (ER) | payer OTHER, MEDICAID, SELFPAY ==
[2022-04-11 09:23] VITALS: BP 153/105; PULSE 104; RESP 28; O2SAT 98; BMI 31.5
--- NOTE | 2022-04-11 09:38 | ED.GENADULT ---
HPI - General Adult General Chief complaint: Psychiatric Symptoms Stated complaint: psd Time Seen by Provider: 04/11/22 09:37 Source: patient Mode of arrival: ambulatory Limitations: no limitations History of Present Illness HPI narrative: Patient is a 47 year old assigned female at with a history of PTSD presenting to the emergency department today with an acute PTSD flare. Patient states that she was seen here yesterday for a left knee injury and was given a clonazepam because she was having a flare up of her PTSD yesterday as well. Patient states that she attempted to call crisis today and they hung up on her. Patient states that she has an appointment with her PCP on Monday of this week. Patient denies any HI or SI. Patient denies any dizziness, lightheadedness, abdominal pain, nausea, vomiting, fever, chills, blurry vision, double vision, loss of vision, chest pain, difficulty breathing, shortness of breath, back pain, night sweats, pain with urination, increased urinary frequency, increased urinary urgency, blood in her urine or stool, syncope or a near syncopal episode, recent trauma or falls, bowel incontinence, bladder incontinence, bowel retention, bladder retention, or any other complaints at this time. Onset (ago): hour(s) Severity scale (1-10): 3 Relieving factors: none Exacerbating factors: none Associated symptoms: denies other symptoms Treatments prior to arrival: none Related Data Previous Rx's Medication Instructions Recorded hydrocodone 5 mg-acetaminophen 325 1 tab PO Q8H PRN pain #7 tabs 11/29/19 mg tablet albuterol sulfate 90 mcg/actuation 1 inh inhalation QID PRN shortness 12/13/21 aerosol inhaler of breath or wheezing #8.5 grams doxycycline hyclate 100 mg tablet 100 mg PO BID 7 days #14 tabs 12/13/21 prednisone 20 mg tablet 20 mg PO DAILY 12 days #26 tabs 12/13/21 Allergies Allergy/AdvReac Type Severity Reaction Status Date / Time erythromycin base Allergy Severe THROAT Unverified 11/14/19 15:14 [Erythromycin Base] CLOSES melon Allergy Severe SHORTNESS Unverified 11/14/19 15:14 OF BREATH penicillin G [Penicillin G] Allergy Severe THROAT Unverified 11/14/19 15:14 CLOSES latex [Latex] Allergy Mild BLISTERS Unverified 11/14/19 15:14 adhesive tape Allergy Unknown RASH Unverified 11/14/19 15:14 cephalexin [Keflex] Allergy Unknown Verified 01/10/17 00:00 duloxetine [From CYMBALTA] Allergy Unknown UNKNOWN Unverified 11/14/19 15:14 lithium [LITHIUM] Allergy Unknown RASH Unverified 11/14/19 15:14 methylphenidate [Ritalin] Allergy Unknown Verified 01/10/17 00:00 penicillin V Allergy Unknown Unverified 12/11/18 00:00 Sulfa (Sulfonamide Allergy Unknown Unverified 12/11/18 00:00 Antibiotics) meperidine [From Demerol] AdvReac Mild VIOLENT Unverified 11/14/19 15:14 BEHAVIOR prochlorperazine AdvReac Mild WEAKNESS Unverified 11/14/19 15:14 [From Compazine] sulfamethoxazole AdvReac Mild VOMITING Unverified 11/14/19 15:14 [From Bactrim] trimethoprim [From Bactrim] AdvReac Mild VOMITING Unverified 11/14/19 15:14 From KEFLEX Allergy Severe SHORTNESS Uncoded 11/14/19 15:14 OF BREATH Erythrocin Allergy Unknown Uncoded 12/11/18 00:00 Erythromycin Allergy Unknown Uncoded 01/10/17 00:00 From Ritalin Allergy Unknown MANIC Uncoded 11/14/19 15:14 REACTION Latex Allergy Unknown Uncoded 01/10/17 00:00 Latex Gloves Allergy Unknown Uncoded 12/11/18 00:00 Sellers Carbonate Allergy Unknown Uncoded 01/10/17 00:00 Sellers Citrate Allergy Unknown Uncoded 12/11/18 00:00 methatrexi Allergy Unknown Uncoded 01/10/17 00:00 tape, adhesive Allergy Unknown Uncoded 01/10/17 00:00 From Ginseng Edge AdvReac Unknown SHORTNESS Uncoded 11/14/19 15:14 OF BREATH Review of Systems Constitutional: Constitutional: Reports no additional constitutional complaints, Denies chills, Denies fever(s) and Denies night sweats Eyes: Eyes: Reports no additional eye complaints, Denies blurry vision, Denies change in vision, Denies diplopia, Denies eye discharge, Denies loss of vision and Denies eye pain ENT: Denies dizziness Cardiovascular: Cardiovascular: Reports no additional cardiovascular complaints, Denies chest pain, Denies lightheadedness, Denies Loss of Consciousness and Denies dyspnea Respiratory: Respiratory: Reports no additional respiratory complaints and Denies dyspnea Gastrointestinal: Gastrointestinal: Reports no additional gastrointestinal complaints, Denies abdominal pain, Denies melena, Denies hematochezia, Denies change in bowel habits and Denies change in stool character Genitourinary: Genitourinary: Denies hematuria, Denies urinary frequency, Denies dysuria, Denies urinary incontinence, Denies urinary hesitancy and Denies urinary urgency Musculoskeletal: Musculoskeletal: Reports no additional musculoskeletal complaints, Denies numbness and Denies tingling Neurologic: Denies dizziness, Denies loss of vision, Denies numbness and Denies tingling Psychiatric: Psychiatric: Reports anxiety and Reports auditory hallucinations Endocrine: Endocrine: Reports no additional endocrine complaints Hematologic/Lymphatic: Hematologic/Lymphatic: Reports no additional hematologic/lymphatic complaints Allergic/Immunologic: Allergic/Immunologic: Reports no additional allergic/immunologic complaints PMFSH Past Medical History Attestation statement: The following information was validated with the patient. Source: old records reviewed and nursing notes reviewed Medical History Bipolar 1 disorder Interstitial cystitis Irritable bowel Lupus Rheumatoid arthritis Surgical History H/O: hysterectomy Social History Social History Alcohol intake: unknown Smoked in Last 30 Days: No Use of substances other than those prescribed or required for medical reasons: Unknown Advance Directives: No Advance Directives Information Provided: No Healthcare Proxy: No Guardian: No Physical Exam ED Vital Signs: Vital Signs - 24 hr 04/11/22 09:23 Pulse Rate 104 H Respiratory Rate 28 H Blood Pressure 153/105 H Pulse Oximetry 98 Oxygen Delivery Method Room Air BMI result Body Mass Index 31.5 Const General: cooperative, no acute distress, alert and awake Nutritional Appearance: well nourished Orientation/consciousness: patient oriented x3 Limitations: no limitations HENMT Head: Yes normal to inspection and Yes atraumatic Ears: hearing grossly normal bilaterally and external ears normal General nose exam: Normal external nose present, no nasal discharge noted and no epistaxis Face and sinus: Yes normal facial exam, No abrasion and No laceration Mouth: Normal oral and palatal mucosa present, no drooling and no muffled voice Eyes General: appearance normal, both eyes and all related structures Periorbital: periorbital findings normal Eyelids: Yes eyelids normal Conjunctivae: conjunctivae normal Pupils: Equal, round and reactive pupils present EOM: EOMs intact bilaterally Neck Neck: Yes normal visual inspection, Yes full ROM and Yes no lymphadenopathy Chest Chest palpation & inspection: normal inspection of the chest Resp Effort & Inspection: normal respiratory effort and able to speak in complete sentences Auscultation: clear to auscultation bilaterally Cardio Rate: regular rate Rhythm: regular rhythm GI Inspection: Yes normal to inspection Palpation (GI): Soft to palpation, not firm, nontender, no guarding and not rigid Neuro General: patient oriented x3 and moves all extremities Cranial nerves: Yes Equal, round and reactive pupils present Cognition (Neuro): normal cognition Motor exam (neuro): 5/5 motor strength present throughout Sensory Exam: Normal double simultaneous stimulation for sensation Coordination: [id number] test normal Extrem General: Yes normal to inspection, Yes full ROM and Yes capillary refill normal Psych Appearance: grossly normal Mental Status: mental status grossly normal Affect: Labile affect present Attitude: cooperative Thought process: Flight of ideas present Insight: Fair insight present (Psych) Judgement: Fair judgement present (Psych) Medications Administered Discontinued Medications Generic Name Dose Route Start Last Admin Trade Name Gagan PRN Reason Stop Dose Admin Clonazepam 2 mg 04/11/22 10:23 04/11/22 10:33 Clonazepam 1 Mg Tablet PO 04/11/22 10:24 2 mg ONCE ONE Administration Medical Decision Making Medical Decision Making [facility] Narrative: Patient is a 47 year old assigned female at with a history of PTSD presenting to the emergency department today with an acute PTSD flare. Patient's physical exam showed an obviously worked up individual but was otherwise unremarkable. Patient's blood work was unremarkable. Patient's urine showed no acute process. Patient was evaluated by the CARE Team who recommended the patient proceed to the [facility] walk in clinic so that she can address her medication issues sooner than Monday. I explained my physical exam findings as well as all test results to the patient. I answered all questions asked by the patient. Patient received PO Clonazepam which she stated helped her symptoms significantly. I stressed the importance of the patient taking her medication as prescribed. I stressed the importance of the patient following up with her primary care provider and proceeding to the [facility] walk in. I stressed the importance of the patient returning to the emergency department immediately if her symptoms were to worsen or if she were to develop any dizziness, shortness of breath, difficulty breathing, chest pain, blurry vision, loss of vision, nausea, vomiting, abdominal pain, fever, chills, back pain, or any other complaints. Patient verbalized agreement and understanding with this treatment plan and discharge. Differential Diagnosis Differential Diagnoses: The differential diagnosis associated with the presentation includes PTSD Consult Healthcare Provider Management of the patient was discussed with: Behavioral Health Provider (recommended the patient proceed to the [facility] walk in) Lab Data MDM Lab Attestation statement: I reviewed the patient's lab results. 04/11/22 10:50 04/11/22 10:50 Labs: Lab Results 04/11/22 04/11/22 04/11/22 Range/Units 09:40 09:40 09:40 WBC (4.8-10.8) X10*3/uL RBC (4.20-5.50) X10*6/uL Hgb (12.0-16.0) g/dl Hct (37.0-47.0) % MCV (80.0-98.0) fL MCH (27.0-33.0) pg MCHC (31.0-35.0) g/dl RDW (11.0-16.0) % Plt Count (160-400) X10*3/uL MPV (9.4-12.3) fL Immature Gran % (Auto) (0.0-0.4) % Neut % (Auto) (45-73) % Lymph % (Auto) (20-40) % [place] % (Auto) (2-11) % Eos % (Auto) (0-4) % Baso % (Auto) (0-2) % Lymph # (Auto) (1.2-4.9) X10*3/uL [place] # (Auto) (0.1-1.2) X10*3/uL Eos # (Auto) (0.0-0.4) X10*3/uL Baso # (Auto) (0.0-0.2) X10*3/uL Abs Immat Gran (auto) (0.00-0.03) X10*3/uL Absolute Neuts (auto) (2.0-8.3) x10*3/uL Absolute Nucleated RBC (0.0-0.012) X10*3/uL Nucleated RBC % (auto) (0.0-0.2) /100WBC Sodium (135-145) mmol/L Potassium (3.3-5.1) mmol/L Chloride (96-108) mmol/L Carbon Dioxide (22-29) mmol/L Anion Gap (12-20) BUN (9-16) mg/dL Creatinine (0.5-1.4) mg/dL Estim Creat Clear Calc Estimated GFR Random Glucose (60-115) mg/dL Calcium (8.4-10.2) mg/dL Total Bilirubin (0.0-1.0) mg/dL AST (5-31) U/L ALT (0-31) U/L Alkaline Phosphatase (39-117) U/L Total Protein (6.5-8.0) g/dL Albumin (3.5-5.0) g/dL Urine Color Yellow Urine Appearance Clear Urine pH 5.0 (5.0-9.0) Ur Specific [place] 1.025 (1.005-1.025) Urine Protein Negative (Neg-Trace) mg/dL Urine Glucose (UA) Negative (Negative) mg/dL Urine Ketones Trace (Negative) mg/dL Urine Blood Negative (Negative) Urine Nitrite Negative (Negative) Ur Leukocyte Esterase Trace H (Negative) Urine RBC 0-2 (0-2) /HPF Urine WBC 0-5 (0-5) /HPF Ur Squamous Epith Cells 6-10 (0-2) /HPF Urine Bacteria 1+ (None Seen) Hyaline Casts 0-2 (0-2) /LPF Urine Test (NEGATIVE) Salicylates (15-30) mg/dL Urine Opiates Screen Not Detected (Not Detect) Urine Fentanyl Screen Not Detected (Not Detect) Acetaminophen (<30) mcg/mL Ur Barbiturates Screen Not Detected (Not Detect) Ur Phencyclidine Scrn Not Detected (Not Detect) Ur Amphetamines Screen Not Detected (Not Detect) U Benzodiazepines Scrn Not Detected (Not Detect) Urine Cocaine Screen Not Detected (Not Detect) U Marijuana (THC) Screen POSITIVE H (Not Detect) Ethyl Alcohol mg/dL COVID-19 (GARY) Negative (Negative) COVID-19 Clin Com See Note 04/11/22 04/11/22 04/11/22 Range/Units 09:40 10:50 10:50 WBC 5.5 (4.8-10.8) X10*3/uL RBC 4.25 (4.20-5.50) X10*6/uL Hgb 13.1 (12.0-16.0) g/dl Hct 38.6 (37.0-47.0) % MCV 90.8 (80.0-98.0) fL MCH 30.8 (27.0-33.0) pg MCHC 33.9 (31.0-35.0) g/dl RDW 12.9 (11.0-16.0) % Plt Count 306 (160-400) X10*3/uL MPV 10.1 (9.4-12.3) fL Immature Gran % (Auto) 0.2 (0.0-0.4) % Neut % (Auto) 49.8 (45-73) % Lymph % (Auto) 37.3 (20-40) % [place] % (Auto) 7.8 (2-11) % Eos % (Auto) 4.0 (0-4) % Baso % (Auto) 0.9 (0-2) % Lymph # (Auto) 2.1 (1.2-4.9) X10*3/uL [place] # (Auto) 0.4 (0.1-1.2) X10*3/uL Eos # (Auto) 0.2 (0.0-0.4) X10*3/uL Baso # (Auto) 0.1 (0.0-0.2) X10*3/uL Abs Immat Gran (auto) 0.01 (0.00-0.03) X10*3/uL Absolute Neuts (auto) 2.7 (2.0-8.3) x10*3/uL Absolute Nucleated RBC 0.000 (0.0-0.012) X10*3/uL Nucleated RBC % (auto) 0.0 (0.0-0.2) /100WBC Sodium 142 (135-145) mmol/L Potassium 3.9 (3.3-5.1) mmol/L Chloride 110 H (96-108) mmol/L Carbon Dioxide 21 L (22-29) mmol/L Anion Gap 15 (12-20) BUN 10 (9-16) mg/dL Creatinine 0.94 (0.5-1.4) mg/dL Estim Creat Clear Calc 94.6 Estimated GFR > 60 Random Glucose 98 (60-115) mg/dL Calcium 9.6 (8.4-10.2) mg/dL Total Bilirubin 0.6 (0.0-1.0) mg/dL AST 15 (5-31) U/L ALT 19 (0-31) U/L Alkaline Phosphatase 50 (39-117) U/L Total Protein 6.7 (6.5-8.0) g/dL Albumin 4.4 (3.5-5.0) g/dL Urine Color Urine Appearance Urine pH (5.0-9.0) Ur Specific [place] (1.005-1.025) Urine Protein (Neg-Trace) mg/dL Urine Glucose (UA) (Negative) mg/dL Urine Ketones (Negative) mg/dL Urine Blood (Negative) Urine Nitrite (Negative) Ur Leukocyte Esterase (Negative) Urine RBC (0-2) /HPF Urine WBC (0-5) /HPF Ur Squamous Epith Cells (0-2) /HPF Urine Bacteria (None Seen) Hyaline Casts (0-2) /LPF Urine Test NEGATIVE (NEGATIVE) Salicylates < 5.0 L (15-30) mg/dL Urine Opiates Screen (Not Detect) Urine Fentanyl Screen (Not Detect) Acetaminophen < 17 (<30) mcg/mL Ur Barbiturates Screen (Not Detect) Ur Phencyclidine Scrn (Not Detect) Ur Amphetamines Screen (Not Detect) U Benzodiazepines Scrn (Not Detect) Urine Cocaine Screen (Not Detect) U Marijuana (THC) Screen (Not Detect) Ethyl Alcohol < 10 mg/dL COVID-19 (GARY) (Negative) COVID-19 Clin Com Discharge Plan Discharge Clinical Impression: Post-traumatic stress disorder Patient Disposition: Home, Self-Care Instructions: Post Traumatic Stress Disorder (ED) Additional Instructions: Proceed to the [facility] walk in as recommended by our CARE team. Follow up with your primary care provider. Return to the emergency department immediately if your symptoms worsen or if you develop any dizziness, shortness of breath, difficulty breathing, chest pain, blurry vision, loss of vision, nausea, vomiting, abdominal pain, fever, chills, back pain, or any other complaints. Prescriptions: No Action hydrocodone-acetaminophen 5-325 mg tablet 1 tab PO Q8H PRN (Reason: pain) Qty: 7 0RF prednisone 20 mg tablet 20 mg PO DAILY 12 Days Qty: 26 0RF Rx Instructions: Take 3 tablets for 5 days THEN; Take 2 tablets for 4 days THEN; Take 1 tablet for 3 days doxycycline hyclate 100 mg tablet 100 mg PO BID 7 Days Qty: 14 0RF albuterol sulfate 90 mcg/actuation HFA aerosol inhaler 1 inh inhalation QID PRN (Reason: shortness of breath or wheezing) Qty: 8.5 0RF Referrals: Hemant Li MD [Primary Care Provider] - Interventions: [place]-Suicide Risk Severity Scale Last Done: 04/11/22 11:03 ED Discharge Assessment Last Done: 04/11/22 13:02 Discharge Date/Time: 04/11/22 13:03 Print Language: Romansh
--- NOTE | 2022-04-11 09:49 | PC.NURSE ---
PAtient crying denies HI/SI says she is reliving episodes in her life that cause her PTSD. Has inmmobilizer on left knee is ambulatory. AOx 4 no respiratory distress noted. PAtient unable to see her provider asking for medication is taking clonidine which is ineffective.
[2022-04-11 09:54] LABS: Appearance Urine Clear; Color Urine Yellow; Glucose Urine UA Negative (Negative); Leukocyte Esterase Urine Trace (Negative); Nitrite Urine Negative (Negative); Specific Gravity - Urine 1.025 (1.005-1.025); UMIC TRIGGER UACC YES; Urine Blood Negative (Negative); Urine Ketones Trace mg/dL (Negative); Urine Protein Negative (Neg-Trace)
[2022-04-11 09:56] LABS: Bacteria Urine 1+ (None Seen); Hyaline Casts Urine 0-2 /LPF (0-2); RBC Urine 0-2 /HPF (0-2); WBC Urine 0-5 /HPF (0-5)
[2022-04-11 10:07] LABS: Amphetamine Screen Urine Not Detected (Not Detect); Barbiturates, Urine Not Detected (Not Detect); Benzodiazepines Screen Urine Not Detected (Not Detect); Cannabinoid Screen Urine POSITIVE (Not Detect); Cocaine Screen Urine Not Detected (Not Detect); Fentanyl, urine Not Detected (Not Detect); Opiate Screen Urine Not Detected (Not Detect); Phencyclidine Screen Urine Not Detected (Not Detect)
--- NOTE | 2022-04-11 10:09 | PC.NURSE ---
Patient calm looking at phone when approached starts crying saying she is anxious
[2022-04-11 10:16] LABS: COVID-19 Test Negative (Negative); IDNOW Serial# BCCEAD1C
[2022-04-11] MEDS: clonazePAM 1 MG TABLET 2 MG PO (10:33)
--- NOTE | 2022-04-11 10:38 | PC.NURSE ---
Patient placed in room admin clonazepam will CTM
[2022-04-11 10:53] LABS: MANUAL DIFF FLAG NO
[2022-04-11 11:01] LABS: Basophils Absolute Auto 0.1 X10*3/uL (0.0-0.2); Basophils Percent Auto 0.9 % (0-2); Eosinophils Absolute Auto 0.2 X10*3/uL (0.0-0.4); Hematocrit 38.6 % (37.0-47.0); Hemoglobin 13.1 g/dl (12.0-16.0); Imm Gran Abs Auto 0.01 X10*3/uL (0.00-0.03); Imm Gran Pct Auto 0.2 % (0.0-0.4); Lymphocytes Absolute Auto 2.1 X10*3/uL (1.2-4.9); Lymphocytes Percent Auto 37.3 % (20-40); Mean Corpuscular HGB Conc 33.9 g/dl (31.0-35.0); Mean Corpuscular Hemoglobin 30.8 pg (27.0-33.0); Mean Corpuscular Volume 90.8 fL (80.0-98.0); Mean Platelet Volume 10.1 fL (9.4-12.3); Monocytes Absolute Auto 0.4 X10*3/uL (0.1-1.2); Monocytes Percent Auto 7.8 % (2-11); Neutrophils Absolute Auto 2.7 x10*3/uL (2.0-8.3); Neutrophils Percent Auto 49.8 % (45-73); Platelet Count 306 X10*3/uL (160-400); Red Blood Count 4.25 X10*6/uL (4.20-5.50); Red Cell Distribution Width 12.9 % (11.0-16.0); White Blood Count 5.5 X10*3/uL (4.8-10.8)
--- NOTE | 2022-04-11 11:06 | PC.NURSE ---
Patient calmer post medication is on phone is not a watch is voluntarily here not section 12 no HI/SI
[2022-04-11 11:34] LABS: Alanine Aminotransferase 19 U/L (0-31); Albumin Level 4.4 g/dL (3.5-5.0); Alkaline Phosphatase 50 U/L (39-117); Anion Gap 15 (12-20); Aspartate Amino Transferase 15 U/L (5-31); Bilirubin Total 0.6 mg/dL (0.0-1.0); Blood Urea Nitrogen 10 mg/dL (9-16); Calcium 9.6 mg/dL (8.4-10.2); Carbon Dioxide 21 mmol/L (22-29); Chloride 110 mmol/L (96-108); Creatinine Clr Calc Pharmacy 94.6; Estimated Glomerular Filt Rate > 60; Ethanol < 10 mg/dL; Glucose Random 98 mg/dL (60-115); Potassium 3.9 mmol/L (3.3-5.1); Sodium 142 mmol/L (135-145); Total Protein 6.7 g/dL (6.5-8.0)
--- NOTE | 2022-04-11 11:53 | PC.NURSE ---
Care team at bedside
[2022-04-11 12:04] LABS: UPreg QC Valid YES; Urine Pregnancy NEGATIVE (NEGATIVE)
[2022-04-11 12:22] LABS: Acetaminophen LAB < 17 mcg/mL (<30); Salicylate < 5.0 mg/dL (15-30)
== END 2022-04-11 13:03 | disposition home or self-care (01) ==
PROVIDERS: Physician Assistant Medical; Emergency Provider Emergency Medicine; PCP Family Medicine
DX: F43.10 Post-traumatic stress disorder, unspecified (principal); F31.9 Bipolar disorder, unspecified; Z79.899 Other long term (current) drug therapy
CPT/HCPCS: 36415; 80053; 80143; 80179; 80307; 81001; 81025; 82077; 85025; 87635; 99284; S9485

== ENCOUNTER 2022-04-22 10:25 | Emergency (ER) | payer MEDICAID, SELFPAY ==
--- NOTE | ~2022-04-22 | XR_ITS ---
Indication: Trauma EXAMINATION: Multiple films, thoracic spine, lumbar spine and sacrum coccyx. Comparison sagittal imaging from CT dated 11/29/2019. 3 views of the lumbar spine demonstrate scoliosis convex left apex at L2. No listhesis or compression injury. 3 views sacrum coccyx do not demonstrate step-off involving the distal sacrum/vertex coccygeal segment. Findings suggest fracture. 3 views of the thoracic spine demonstrate mild scoliosis convex right apex in the mid thoracic region. There is no compression injury or listhesis. There is some evidence of degenerative changes in the mid to lower thoracic region. XR/XR thoracic spine 3V IMPRESSION: Multiple films. Findings consistent with fracture of the distal sacrum/first coccygeal segment. Note is made in the lower left cervical/supraclavicular region a dense calcification measuring approximately 3 x 2 cm. Correlation recommended clinically
--- NOTE | ~2022-04-22 | XR_ITS ---
Indication: Trauma EXAMINATION: Multiple films, thoracic spine, lumbar spine and sacrum coccyx. Comparison sagittal imaging from CT dated 11/29/2019. 3 views of the lumbar spine demonstrate scoliosis convex left apex at L2. No listhesis or compression injury. 3 views sacrum coccyx do not demonstrate step-off involving the distal sacrum/vertex coccygeal segment. Findings suggest fracture. 3 views of the thoracic spine demonstrate mild scoliosis convex right apex in the mid thoracic region. There is no compression injury or listhesis. There is some evidence of degenerative changes in the mid to lower thoracic region. XR/XR lumbar spine 2-3V IMPRESSION: Multiple films. Findings consistent with fracture of the distal sacrum/first coccygeal segment. Note is made in the lower left cervical/supraclavicular region a dense calcification measuring approximately 3 x 2 cm. Correlation recommended clinically
--- NOTE | ~2022-04-22 | XR_ITS ---
Indication: Trauma EXAMINATION: Multiple films, thoracic spine, lumbar spine and sacrum coccyx. Comparison sagittal imaging from CT dated 11/29/2019. 3 views of the lumbar spine demonstrate scoliosis convex left apex at L2. No listhesis or compression injury. 3 views sacrum coccyx do not demonstrate step-off involving the distal sacrum/vertex coccygeal segment. Findings suggest fracture. 3 views of the thoracic spine demonstrate mild scoliosis convex right apex in the mid thoracic region. There is no compression injury or listhesis. There is some evidence of degenerative changes in the mid to lower thoracic region. XR/XR sacrum coccyx min 2V IMPRESSION: Multiple films. Findings consistent with fracture of the distal sacrum/first coccygeal segment. Note is made in the lower left cervical/supraclavicular region a dense calcification measuring approximately 3 x 2 cm. Correlation recommended clinically
[2022-04-22 10:29] VITALS: BP 144/102; PULSE 94; O2SAT 100
[2022-04-22 10:36] VITALS: BP 122/56; PULSE 62; RESP 15; TEMP 36.9; O2SAT 98
[2022-04-22 10:45] VITALS: BP 122/56; PULSE 87; RESP 17; O2SAT 97; BMI 26.6
[2022-04-22] MEDS: Cyclobenzaprine HCl 10 MG TABLET PO (10:49)
--- NOTE | 2022-04-22 10:55 | ED_ITS ---
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 Patient reports slipping down 3 stairs due to ice landing on buttocks/low back, denies head trauma or LOC. was ambulatory after incident took ibuprofen, diclofenac, and lorazepam. Reports pain radiates to bilateral feet. Denies taking anticoagulation, numbness, weakness, urinary incontinence/retention, neck pain, abdominal MD complaint: fall Onset (ago): hour(s) Related Data Previous Rx's Medication Instructions Recorded hydrocodone 5 mg-acetaminophen 325 1 tab PO Q8H PRN pain #7 tabs 11/29/19 mg tablet albuterol sulfate 90 mcg/actuation 1 inh inhalation QID PRN shortness 12/13/21 aerosol inhaler of breath or wheezing #8.5 grams doxycycline hyclate 100 mg tablet 100 mg PO BID 7 days #14 tabs 12/13/21 prednisone 20 mg tablet 20 mg PO DAILY 12 days #26 tabs 12/13/21 Allergies Allergy/AdvReac Type Severity Reaction Status Date / Time erythromycin base Allergy Severe THROAT Unverified 11/14/19 15:14 [Erythromycin Base] CLOSES melon Allergy Severe SHORTNESS Unverified 11/14/19 15:14 OF BREATH penicillin G [Penicillin G] Allergy Severe THROAT Unverified 11/14/19 15:14 CLOSES latex [Latex] Allergy Mild BLISTERS Unverified 11/14/19 15:14 adhesive tape Allergy Unknown RASH Unverified 11/14/19 15:14 cephalexin [Keflex] Allergy Unknown Verified 01/10/17 00:00 duloxetine [From CYMBALTA] Allergy Unknown UNKNOWN Unverified 11/14/19 15:14 lithium [LITHIUM] Allergy Unknown RASH Unverified 11/14/19 15:14 methylphenidate [Ritalin] Allergy Unknown Verified 01/10/17 00:00 penicillin V Allergy Unknown Unverified 12/11/18 00:00 Sulfa (Sulfonamide Allergy Unknown Unverified 12/11/18 00:00 Antibiotics) meperidine [From Demerol] AdvReac Mild VIOLENT Unverified 11/14/19 15:14 BEHAVIOR prochlorperazine AdvReac Mild WEAKNESS Unverified 11/14/19 15:14 [From Compazine] sulfamethoxazole AdvReac Mild VOMITING Unverified 11/14/19 15:14 [From Bactrim] trimethoprim [From Bactrim] AdvReac Mild VOMITING Unverified 11/14/19 15:14 From KEFLEX Allergy Severe SHORTNESS Uncoded 11/14/19 15:14 OF BREATH Erythrocin Allergy Unknown Uncoded 12/11/18 00:00 Erythromycin Allergy Unknown Uncoded 01/10/17 00:00 From Ritalin Allergy Unknown MANIC Uncoded 11/14/19 15:14 REACTION Latex Allergy Unknown Uncoded 01/10/17 00:00 Latex Gloves Allergy Unknown Uncoded 12/11/18 00:00 [place] Carbonate Allergy Unknown Uncoded 01/10/17 00:00 [place] Citrate Allergy Unknown Uncoded 12/11/18 00:00 methatrexi Allergy Unknown Uncoded 01/10/17 00:00 tape, adhesive Allergy Unknown Uncoded 01/10/17 00:00 From Ginseng Edge AdvReac Unknown SHORTNESS Uncoded 11/14/19 15:14 OF BREATH Review of Systems Review of Systems: Constitutional: No Fever, No Chills ENT/Mouth: No Ear Pain, No Nasal Congestion, No sore throat, No Rhinorrhea, No Swallowing Difficulty Cardiovascular: No Chest Pain, No SOB Respiratory: No Cough, No Sputum, No Wheezing Gastrointestinal: No Nausea, No Vomiting, No Diarrhea, No Constipation, No Abdominal pain Genitourinary: No Dysuria, No Hematuria, No Urinary Incontinence/retention, No Urgency, No Flank Pain Musculoskeletal: + joint pain, No Myalgias, No Joint Swelling Skin: No Skin Lesions, No rash Neuro: No Weakness, No Numbness, No Paresthesias Yes all other systems are reviewed and are negative Constitutional: Constitutional: Reports as per HPI Neurologic: Denies Sensory deficit (Neuro) [facility] Past Medical History Attestation statement: The following information was validated with the patient. Medical History Bipolar 1 disorder Interstitial cystitis Irritable bowel Lupus Rheumatoid arthritis Surgical History H/O: hysterectomy Social History Social History Alcohol intake: unknown Advance Directives: No Advance Directives Information Provided: No Physical Exam Vital Signs: Vital Signs: Last Vital Signs Temp 98.4 F 04/22/22 10:36 Pulse 87 04/22/22 10:45 Resp 17 04/22/22 10:45 BP 122/56 L 04/22/22 10:45 Pulse Ox 97 04/22/22 10:45 O2 Del Method 04/22/22 10:45 BMI result Body Mass Index 26.6 Const: General: cooperative, healthy appearing and no acute distress Orientation/consciousness: patient oriented x3 Limitations: no limitations HEENT: Head: Yes normal to inspection and Yes atraumatic Ears: hearing grossly normal bilaterally General nose exam: Normal external nose present Face and sinus: Yes normal facial exam Eyes: General: appearance normal, both eyes and all related structures EOM: EOMs intact bilaterally Neck: Neck: Yes normal visual inspection and Yes no meningeal signs Resp: Effort & Inspection: normal respiratory effort and no respiratory distress Cardio: Rate: regular rate GI: Inspection: Yes normal to inspection Palpation (GI): Soft to palpation, nontender, no guarding and not rigid : General: Yes no CVA tenderness Back/Spine/Pelvis: Other: No midline thoracic/lumbar spinous tenderness/step-off or deformity. + bilateral thoracic and lumbar paraspinal tenderness to palpation reproducing subjective complaint. No ecchymosis erythema or crepitus. No flail chest Back: no CVA tenderness Skin: Rashes: no rashes Wounds: no wounds Neuro: Other: Strength intact throughout. No saddle anesthesia. Sensation intact to light touch. Neurovascular intact distally General: patient oriented x3, tone normal, moves all extremities, no meningeal signs and no focal motor deficits Gait exam (Neuro): Normal gait present Motor exam (neuro): 5/5 motor strength present throughout Sensory Exam: No Sensory deficit (Neuro) Extrem: General: Yes normal to inspection Course Course Course Narrative: XR thoracic spine 3V/XR lumbar spine 2-3V/XR sacrum coccyx min 2V IMPRESSION: Multiple films. Findings consistent with fracture of the distal sacrum/first coccygeal segment. ? Note is made in the lower left cervical/supraclavicular region a dense calcification measuring approximately 3 x 2 cm. Correlation recommended clinically >> patient with 2 large necklaces on, likely dense calcification Radiology is appreciating. This was discussed with patient including close follow-up with PCP > [facility] Results discussed with patient including worrisome signs and symptoms and strict return precautions, and when to return to the emergency department. They verbalized understanding and feel safe for discharge at this time. 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 On exam vital signs stable, NAD, appears in pain, abdomen soft/nontender, no midline spinous tenderness throat or red flag symptoms. Bilateral paraspinal tenderness noted. Concern for MSK pain vs fracture vs contusion. Low suspicion for cauda equina/cord compression or epidural abscess Plan: X-rays, pain control Please refer to course for remaining clinical decision making, interpretation of labs/imaging results, and discussions with consultants and/or family members. Differential Diagnosis Differential Diagnoses: The differential diagnosis associated with the presentation includes As above Radiology Impression Discussion of test interpretation with radiology: I have reviewed the radiologist's reading. External Record Review External record reviewed: Office record and Outpatient record Prescription Management I considered prescription management with: Pain Medication Discharge Plan Discharge Clinical Impression: Closed sacral fracture, Coccygeal fracture Patient Disposition: Home, Self-Care Instructions: Coccyx Injury (ED), Sacral Fracture (ED) Additional Instructions: You have a fracture of the distal part of her sacrum and coccyx. There is no further management at this time other than pain control. Apply ice as needed. Tylenol No. 3 is an opiate pain medication, take only when pain is severe for the text 3 days. In addition take ibuprofen Follow-up with her doctor/orthopedics as needed If pain persists or worsen/becomes unbearable urine unable to ambulate return to the ED Prescriptions: No Action hydrocodone-acetaminophen 5-325 mg tablet 1 tab PO Q8H PRN (Reason: pain) Qty: 7 0RF prednisone 20 mg tablet 20 mg PO DAILY 12 Days Qty: 26 0RF Rx Instructions: Take 3 tablets for 5 days THEN; Take 2 tablets for 4 days THEN; Take 1 tablet for 3 days doxycycline hyclate 100 mg tablet 100 mg PO BID 7 Days Qty: 14 0RF albuterol sulfate 90 mcg/actuation HFA aerosol inhaler 1 inh inhalation QID PRN (Reason: shortness of breath or wheezing) Qty: 8.5 0RF Referrals: [facility] [Provider Group] - 10 days (as needed) Hemant Li MD [Primary Care Provider] -
== END 2022-04-22 12:12 | disposition home or self-care (01) ==
PROVIDERS: Emergency Provider Student in an Organized Health Care Education/Training Program; PCP Family Medicine
DX: S32.10XA Unspecified fracture of sacrum, initial encounter for closed fracture (principal); S32.2XXA Fracture of coccyx, initial encounter for closed fracture; M54.50 Low back pain, unspecified; M54.6 Pain in thoracic spine; W01.0XXA Fall on same level from slipping, tripping and stumbling without subsequent striking against object, initial encounter; Y93.9 Activity, unspecified; Y92.9 Unspecified place or not applicable; Y99.9 Unspecified external cause status; Z79.899 Other long term (current) drug therapy
CPT/HCPCS: 72072; 72100; 72220; 99283

== ENCOUNTER 2022-07-26 21:12 | Emergency (ER) | payer OTHER, SELFPAY ==
[2022-07-26 21:25] VITALS: BP 97/75; PULSE 77; RESP 18; TEMP 36.3; O2SAT 100; BMI 21.5
== END 2022-07-26 23:00 | disposition left against medical advice (07) ==
LOC: HO.ED 22:59
PROVIDERS: Emergency Provider Emergency Medicine
DX: N20.0 Calculus of kidney (principal)
CPT/HCPCS: 99281

== ENCOUNTER 2022-11-10 08:02 | Emergency (ER) | payer OTHER, SELFPAY ==
--- NOTE | ~2022-11-10 | XR_ITS ---
EXAMINATION: XR CHEST 2 VIEW CLINICAL INFORMATION: Shortness of breath and cough COMPARISON: 12/13/2021 TECHNIQUE: PA and lateral views of the chest obtained. FINDINGS: The lungs are clear. There are no pleural effusions. The cardiomediastinal silhouette is normal. XR/XR chest 2V IMPRESSION: No acute cardiopulmonary disease.
[2022-11-10 08:10] VITALS: BP 144/91; PULSE 82; RESP 19; TEMP 36.6; O2SAT 98; BMI 28.3
[2022-11-10 09:00] VITALS: BP 133/72; PULSE 76; RESP 20; TEMP 36.7; O2SAT 98
[2022-11-10 09:03] VITALS: PULSE 78; RESP 18; O2SAT 98
[2022-11-10] MEDS: Albuterol/Iprat 2.5/0.5MG 3 ML AMPUL.NEB INHALE (09:03)
--- NOTE | 2022-11-10 09:07 | ED_ITS ---
HPI - General Adult General Chief complaint: General Medical Stated complaint: rash all over body Time Seen by Provider: 11/10/22 08:40 Source: patient Mode of arrival: ambulatory Limitations: no limitations History of Present Illness HPI narrative: 47-year-old female with history of rheumatoid arthritis on immunosuppressive therapy presents with respiratory complaints and rash. Patient's symptoms started a few days ago. She was recently at a convention when she started to feel some upper respiratory related symptoms. She developed pleuritic chest pain which is not uncommon for her. She contacted her track template maker to prescribed her steroids and Percocet. She then subsequently developed an erythematous rash on her extremities as well as an air and did a different type of rash on her right breast. She has had shingles before. However, she does not describes a burning sensation but she believes her rash does not look like shingles. She denies any fevers or chills. She does have cough, nonproductive. She has pleuritic chest pain. Her symptoms are moderate to severe in nature. There is no clear relieving or exacerbating features. She denies any nausea, vomiting, diarrhea. Related Data Previous Rx's Medication Instructions Recorded hydrocodone 5 mg-acetaminophen 325 1 tab PO Q8H PRN pain #7 tabs 11/29/19 mg tablet albuterol sulfate 90 mcg/actuation 1 inh inhalation QID PRN shortness 12/13/21 aerosol inhaler of breath or wheezing #8.5 grams doxycycline hyclate 100 mg tablet 100 mg PO BID 7 days #14 tabs 12/13/21 prednisone 20 mg tablet 20 mg PO DAILY 12 days #26 tabs 12/13/21 acetaminophen 300 mg-codeine 30 mg 1 tab PO Q6H PRN pain (scale score 04/22/22 tablet 7-10) 3 days #9 tabs azithromycin 250 mg tablet 250 mg PO DAILY 4 days #4 tabs 11/10/22 nirmatrelvir 300 mg (150 mg See Rx Instructions PO .COMPLEX 11/10/22 x2)-ritonavir 100 mg tablet,dose #30 ea pack (Paxlovid) Allergies Allergy/AdvReac Type Severity Reaction Status Date / Time erythromycin base Allergy Severe THROAT Verified 11/10/22 08:10 [Erythromycin Base] CLOSES melon Allergy Severe SHORTNESS Verified 11/10/22 08:10 OF BREATH penicillin G [Penicillin G] Allergy Severe THROAT Verified 11/10/22 08:10 CLOSES latex [Latex] Allergy Mild BLISTERS Verified 11/10/22 08:10 adhesive tape Allergy Unknown RASH Verified 11/10/22 08:10 cephalexin [Keflex] Allergy Unknown Unknown Verified 11/10/22 08:10 duloxetine [From CYMBALTA] Allergy Unknown UNKNOWN Verified 11/10/22 08:10 lithium [LITHIUM] Allergy Unknown RASH Verified 11/10/22 08:10 methylphenidate [Ritalin] Allergy Unknown Unknown Verified 11/10/22 08:10 penicillin V Allergy Unknown Unknown Verified 11/10/22 08:10 Sulfa (Sulfonamide Allergy Unknown Unknown Verified 11/10/22 08:10 Antibiotics) meperidine [From Demerol] AdvReac Mild VIOLENT Verified 11/10/22 08:10 BEHAVIOR prochlorperazine AdvReac Mild WEAKNESS Verified 11/10/22 08:10 [From Compazine] sulfamethoxazole AdvReac Mild VOMITING Verified 11/10/22 08:10 [From Bactrim] trimethoprim [From Bactrim] AdvReac Mild VOMITING Verified 11/10/22 08:10 From KEFLEX Allergy Severe SHORTNESS Uncoded 11/10/22 08:10 OF BREATH Erythrocin Allergy Unknown Unknown Uncoded 11/10/22 08:10 Erythromycin Allergy Unknown Unknown Uncoded 11/10/22 08:10 From Ritalin Allergy Unknown MANIC Uncoded 11/10/22 08:10 REACTION Latex Allergy Unknown Unknown Uncoded 11/10/22 08:10 Latex Gloves Allergy Unknown Unknown Uncoded 11/10/22 08:10 [place] Carbonate Allergy Unknown Unknown Uncoded 11/10/22 08:10 [place] Citrate Allergy Unknown Unknown Uncoded 11/10/22 08:10 methatrexi Allergy Unknown Unknown Uncoded 11/10/22 08:10 tape, adhesive Allergy Unknown Unknown Uncoded 11/10/22 08:10 From Ginseng Edge AdvReac Unknown SHORTNESS Uncoded 11/10/22 08:10 OF BREATH Review of Systems Review of Systems: CONSTITUTIONAL: Denies weight loss, fever and chills. HEENT: Denies changes in vision and hearing. RESPIRATORY: + SOB and cough. CV: Denies palpitations + CP. GI: Denies abdominal pain, nausea, vomiting and diarrhea. : Denies dysuria and urinary frequency. MSK: Denies myalgia and joint pain. SKIN: + rash and pruritus. NEUROLOGICAL: Denies headache and syncope. PSYCHIATRIC: Denies recent changes in mood. Denies anxiety and depression. All other ROS are negative unless in HPI [facility] Past Medical History Medical History Bipolar 1 disorder Interstitial cystitis Irritable bowel Lupus Rheumatoid arthritis Surgical History H/O: hysterectomy Social History Social History Alcohol intake: unknown Smoked in Last 30 Days: No Use of substances other than those prescribed or required for medical reasons: No Advance Directives: No Advance Directives Information Provided: No Physical Exam ED Vital Signs: Vital Signs - 24 hr 11/10/22 08:10 11/10/22 09:00 11/10/22 09:03 Temperature 98 F 98.0 F Pulse Rate 82 76 78 Respiratory Rate 19 20 18 Blood Pressure 144/91 H 133/72 Pulse Oximetry 98 98 Oxygen Delivery Method Room Air BMI result Body Mass Index 28.3 GEN: Well developed, no acute distress, alert, oriented HEENT: Normocephalic, atraumatic, normal external ears, nose appears normal, no oropharyngeal edema or exudates Eyes: Normal to appearance Neck: Supple, no lymphadenopathy Respiratory: Talks in complete sentences, no respiratory distress, bibasilar rh onchi Cardiovascular: Regular rate and rhythm, no murmurs rubs or gallops Abdomen: Soft, nontender, nondistended, no guarding, no rebound Back: No CVA tenderness Extremities: No clubbing cyanosis or edema Neurologic: No focal neurologic deficits, cranial nerves 2-12 intact, strength is 5/5 bilaterally Skin: Viral appearing rash on extremities, shingles like fascicular rash under right breast Course Course Course Narrative: The workup is complete. Patient's x-ray was negative for acute cardiopulmonary disease. She did test positive for COVID. Will start patient on Paxil of it although given the duration of her symptoms, she may not benefit from this. However, given her history of immunosuppression, I think the benefits outweigh the risks. I will also put the patient on azithromycin. She is currently on prednisone. I will not give her an extra burst at this point. She can follow up with her primary care provider as needed and contact her track template maker to discuss potentially postponing her infusion next week. Medications Administered Discontinued Medications Generic Name Dose Route Start Last Admin Trade Name [place]agan PRN Reason Stop Dose Admin Albuterol/Ipratropium 3 ml 11/10/22 09:01 11/10/22 09:03 Albuterol/Iprat 2.5/0.5mg 3 Ml Ampul.Neb INHALE 11/10/22 09:02 3 ml ONCE ONE Administration Medical Decision Making Medical Decision Making [facility] Narrative: 47-year-old female with history of rheumatoid arthritis on immunosuppressive therapy presents with a constellation of symptoms including cough, pleuritic chest pain, rash. As far as respiratory symptoms go, this could be viral syndrome such as influenza, COVID, parainfluenza, etc.. This could also be bronchitis or pneumonia. Will get a chest x-ray to rule out pneumonia. Will order COVID and influenza swab to rule out these possible diagnoses. The rash on her extremities appears to be more of a viral exanthem as opposed allergic reaction. She does have a vesicular rash in her right breast. Does not follow a dermatomal distribution however, given her history of immunosuppression, I do believe this is most likely shingles. I would like to start the patient on Valtrex. Differential Diagnosis Differential Diagnoses: The differential diagnosis associated with the presentation includes (See above) COVID Admission/Observation Consideration of admission/observation: Escalation of care including admission/observation considered Lab Data [facility] Lab Attestation statement: I reviewed the patient's lab results. Labs: Lab Results 11/10/22 Range/Units 08:56 COVID-19 (GARY) Positive A (Negative) COVID-19 Clin Com See Note Influenza Type A (ANTONIA) Negative (Negative) Influenza Type B (ANTONIA) Negative (Negative) Influenza A & B Note See Note Independent Interpretation I performed an independent interpretation of an: Plain X-Ray Prescription Management I considered prescription management with: Pain Medication, Antiviral and Antibiotic Chronic Conditions Patient?s care impacted by: Other (Rheumatoid arthritis) Discharge Plan Discharge Clinical Impression: Immunosuppression, Respiratory infection, Viral exanthem, COVID Instructions: Viral Exanthem (ED) Prescriptions: New azithromycin 250 mg tablet 250 mg PO DAILY 4 Days Qty: 4 0RF Rx Instructions: start on day 2 of therapy Paxlovid 300 mg (150 mg x 2)-100 mg tablets,dose pack See Rx Instructions .ROUTE .COMPLEX Qty: 30 0RF Rx Instructions: take TWO 150 mg tablets of nirmatrelvir with ONE 100 mg tablet of ritonavir twice daily for 5 days No Action hydrocodone-acetaminophen 5-325 mg tablet 1 tab PO Q8H PRN (Reason: pain) Qty: 7 0RF acetaminophen-codeine 300-30 mg tablet 1 tab PO Q6H PRN (Reason: pain (scale score 7-10)) 3 Days Qty: 9 0RF prednisone 20 mg tablet 20 mg PO DAILY 12 Days Qty: 26 0RF Rx Instructions: Take 3 tablets for 5 days THEN; Take 2 tablets for 4 days THEN; Take 1 tablet for 3 days doxycycline hyclate 100 mg tablet 100 mg PO BID 7 Days Qty: 14 0RF albuterol sulfate 90 mcg/actuation HFA aerosol inhaler 1 inh inhalation QID PRN (Reason: shortness of breath or wheezing) Qty: 8.5 0RF Referrals: Hemant Li MD [Primary Care Provider] -
[2022-11-10 09:29] LABS: COVID-19 Test Positive (Negative); IDNOW Serial# 9DB6401D; IDNOW Serial# BCCEAD1C; Influenza A Negative (Negative); Influenza B2 Negative (Negative)
[2022-11-10] MEDS: Azithromycin 500 MG TABLET PO (10:04)
[2022-11-10] MEDS: valACYclovir HCL 1,000 MG TABLET 1000 MG PO (10:04)
[2022-11-10 10:31] VITALS: BP 123/96; PULSE 113; RESP 20; O2SAT 96
== END 2022-11-10 10:41 | disposition home or self-care (01) ==
PROVIDERS: Emergency Provider Emergency Medicine; PCP Family Medicine
DX: U07.1 COVID-19 (principal); J06.9 Acute upper respiratory infection, unspecified; B08.8 Other specified viral infections characterized by skin and mucous membrane lesions; M06.9 Rheumatoid arthritis, unspecified
CPT/HCPCS: 71046; 87502; 87635; 94640; 99284

== ENCOUNTER 2022-11-12 10:41 | Emergency (ER) | payer OTHER, SELFPAY ==
--- NOTE | 2022-11-12 11:07 | ED_ITS ---
HPI - General Adult General Chief complaint: Skin/Abscess/Foreign Body Stated complaint: covid + rash Time Seen by Provider: 11/12/22 11:58 Source: patient Mode of arrival: ambulatory Limitations: no limitations History of Present Illness HPI narrative: 47 yo f hx of lupus, RA on immunosuppresive therapy, bipolar d/p. IBS, covid + 2 days ago w/ sx onset about 5 days ago presents w/ worsening rash X2 days. Patient reports she thinks this rash had stared about 4 days ago but has been worsening. She states its onher bilateral upper and lower extremities, trunk, back and the worst is underneath her right breast. Patient reports rash is raised, itchy, and seems to be progressively worsening. No involvement of palms, solar mouth. The patient reports she is currently taking an antiviral med, Paxlovid, azithromycin could they treated her for a COVID pneumonia. Denies fevers, chills, cp, nausea, vomiting, abd pain, headache, vision changes Related Data Previous Rx's Medication Instructions Recorded hydrocodone 5 mg-acetaminophen 325 1 tab PO Q8H PRN pain #7 tabs 11/28/ mg tablet albuterol sulfate 90 mcg/actuation 1 inh inhalation QID PRN shortness 12/13/21 aerosol inhaler of breath or wheezing #8.5 grams doxycycline hyclate 100 mg tablet 100 mg PO BID 7 days #14 tabs 12/13/21 prednisone 20 mg tablet 20 mg PO DAILY 12 days #26 tabs 12/13/21 acetaminophen 300 mg-codeine 30 mg 1 tab PO Q6H PRN pain (scale score 04/22/22 tablet 7-10) 3 days #9 tabs azithromycin 250 mg tablet 250 mg PO DAILY 4 days #4 tabs 11/10/22 nirmatrelvir 300 mg (150 mg See Rx Instructions PO .COMPLEX 11/10/22 x2)-ritonavir 100 mg tablet,dose #30 ea pack (Paxlovid) hydrocortisone 1 % lotion 1 appl topical BID PRN itching 11/12/22 (Anti-Itch (hydrocortisone)) #120 mL hydroxyzine HCl 25 mg tablet 25 mg PO BEDTIME PRN anxiety #10 11/12/22 tabs nystatin 100,000 unit/gram topical 1 appl topical BID #15 grams 11/12/22 powder prednisone 50 mg tablet 50 mg PO DAILY 5 days #5 tabs 11/12/22 Allergies Allergy/AdvReac Type Severity Reaction Status Date / Time erythromycin base Allergy Severe THROAT Verified 11/10/22 08:10 [Erythromycin Base] CLOSES melon Allergy Severe SHORTNESS Verified 11/10/22 08:10 OF BREATH penicillin G [Penicillin G] Allergy Severe THROAT Verified 11/10/22 08:10 CLOSES latex [Latex] Allergy Mild BLISTERS Verified 11/10/22 08:10 adhesive tape Allergy Unknown RASH Verified 11/10/22 08:10 cephalexin [Keflex] Allergy Unknown Unknown Verified 11/10/22 08:10 duloxetine [From CYMBALTA] Allergy Unknown UNKNOWN Verified 11/10/22 08:10 lithium [LITHIUM] Allergy Unknown RASH Verified 11/10/22 08:10 methylphenidate [Ritalin] Allergy Unknown Unknown Verified 11/10/22 08:10 penicillin V Allergy Unknown Unknown Verified 11/10/22 08:10 Sulfa (Sulfonamide Allergy Unknown Unknown Verified 11/10/22 08:10 Antibiotics) meperidine [From Demerol] AdvReac Mild VIOLENT Verified 11/10/22 08:10 BEHAVIOR prochlorperazine AdvReac Mild WEAKNESS Verified 11/10/22 08:10 [From Compazine] sulfamethoxazole AdvReac Mild VOMITING Verified 11/10/22 08:10 [From Bactrim] trimethoprim [From Bactrim] AdvReac Mild VOMITING Verified 11/10/22 08:10 From KEFLEX Allergy Severe SHORTNESS Uncoded 11/10/22 08:10 OF BREATH Erythrocin Allergy Unknown Unknown Uncoded 11/10/22 08:10 Erythromycin Allergy Unknown Unknown Uncoded 11/10/22 08:10 From Ritalin Allergy Unknown MANIC Uncoded 11/10/22 08:10 REACTION Latex Allergy Unknown Unknown Uncoded 11/10/22 08:10 Latex Gloves Allergy Unknown Unknown Uncoded 11/10/22 08:10 [place] Carbonate Allergy Unknown Unknown Uncoded 11/10/22 08:10 [place] Citrate Allergy Unknown Unknown Uncoded 11/10/22 08:10 methatrexi Allergy Unknown Unknown Uncoded 11/10/22 08:10 tape, adhesive Allergy Unknown Unknown Uncoded 11/10/22 08:10 From Ginseng Edge AdvReac Unknown SHORTNESS Uncoded 11/10/22 08:10 OF BREATH Review of Systems Review of Systems: Constitutional : No Weight loss, No Fever, No Chills, No Fatigue, No Malaise ENT/Mouth : No sore throat, No Rhinorrhea Eyes: No Eye Pain, No Swelling, No Redness Cardiovascular : No Chest Pain, No SOB, No Dyspnea on Exertion, No Orthopnea, No Edema, No Palpitations Respiratory : + Cough, No Sputum, No Wheezing Gastrointestinal : No Nausea, No Vomiting, No Diarrhea, No Constipation, No abdominal Pain, No Hematochezia, No Melena Genitourinary : No Dysuria, No Urinary Frequency, No Hematuria, Musculoskeletal : No joint pain, No Myalgias, No Joint Swelling Skin : No Skin Lesions, + rash Neuro : No Weakness, No Numbness, No Dizziness, No Headache Psych : No Anxiety/Panic, No Depression All other systems reviewed and are negative Yes all other systems are reviewed and are negative [facility] Past Medical History Attestation statement: The following information was validated with the patient. Source: old records reviewed and nursing notes reviewed Medical History Rheumatoid arthritis Irritable bowel Lupus Interstitial cystitis Bipolar 1 disorder Surgical History H/O: hysterectomy Social History Social History Alcohol intake: unknown Advance Directives: No Advance Directives Information Provided: Yes Physical Exam ED Vital Signs: Vital Signs - 24 hr 11/12/22 11:11 Temperature 97.7 F Pulse Rate 74 Respiratory Rate 16 Blood Pressure 120/81 Pulse Oximetry 96 Oxygen Delivery Method Room Air BMI result Body Mass Index 26.5 vss Appearance: Alert.? Oriented X3.? No acute distress.? Head: Normocephalic, atraumatic, no step-offs or deformities Eyes: Pupils equal, round and reactive to light.? ENT: Pharynx normal.? Neck: Normal inspection.? Neck supple.? CVS: Normal heart rate and rhythm.? Pulses normal.? Respiratory: No respiratory distress.? Breath sounds normal.? Abdomen: Soft and nontender.? Skin: Skin warm and dry.? Normal skin color.? Normal skin turgor.? Extremities: No lower extremity edema.? No calf ttp. 5/5 strength to bilateral upper and lower extremities Neuro: Oriented X 3.? No motor deficit.? No sensory deficit. CN 2-12 intact Course Course Course Narrative: This is an RME: Additional HPI, ROS, PE not included below will be deferred to primary provider. This is a 30-[id number]-female, with history of rheumatoid arthritis on immunosuppressive therapy, presenting to the ER with complaints of rash to face, left arm and right arm, Abdomen and legs x 2 days. patient states that she was seen in the emergency department 2 days ago where she was diagnosed with COVID. She was started on azithromycin and paxlovid. she states that she had the rash prior to starting these medications. She denies any chest pain or shortness breath. No difficulty swallowing. patient has expiratory wheeze in the right lower base, vital signs stable. Further ER evaluation needed. Medical Decision Making Medical Decision Making MDM Narrative: 1200 47 yo f currently covid + reports worsening rash PE w/ Maculopapular rash to upper, lower extremities, trunk, abdomen, breasts, sparing palms and soles & mouth ( see imaging) Concerns for covid rash, vs drug reaction vs dermatitis vs Viral exanthem. Unlikely necrotizing infection, SJS, TEN, syphilis, gangrene, meningicoccal infection, tick borne illness or mosquito borne illness. Unlikely Chickenpox, no signs of anaphylaxis. Plan- The patient's COVID is being better, she will continue her current plan, no indication for changes there. No respiratory issues. Will send patient home with Atarax, prednisone, hydrocortisone anti-itch cream as well as nystatin powder. Educated patient on diagnosis and treatment plan, answered all question, patient verbalizes understanding. At this time patient will be discharged home, advised to return with new or worsening symptoms. Educated on worrisome signs and symptoms and when to return. At this time I feel comfortable discharge home. Differential Diagnosis Differential Diagnoses: The differential diagnosis associated with the presentation includes Concerns for covid rash, vs drug reaction vs dermatitis vs Viral exanthem. Unlikely necrotizing infection, SJS, TEN, syphilis, gangrene, meningicoccal infection, tick borne illness or mosquito borne illness. Unlikely Chickenpox, no signs of anaphylaxis. Admission/Observation Consideration of admission/observation: Escalation of care including admission/observation considered Lab Data Labs: No need Prescription Management I considered prescription management with: Other Chronic Conditions Patient?s care impacted by: Other (RA) Critical Care Time Critical Care Time Critical Care Time: No Discharge Plan Discharge Clinical Impression: COVID, Rash and nonspecific skin eruption Patient Disposition: Home, Self-Care Instructions: Acute Rash (ED), Cold Compress or Soak (ED) Additional Instructions: Take your medications as prescribed. If you were prescribed antibiotics today, it is important that you take your medication to their entirety, do not skip any doses, do not finish them early. Follow-up with your primary care provider this week. Return to the emergency department with new or worsening symptoms. Such as fevers, chills, chest pain, shortness of breath, nausea, vomiting, dizziness, headache, vision changes, lethargy In case of emergency call 911 Prescriptions: New prednisone 50 mg tablet 50 mg PO DAILY 5 Days Qty: 5 0RF hydroxyzine HCl 25 mg tablet 25 mg PO BEDTIME PRN (Reason: anxiety) Qty: 10 0RF nystatin 100,000 unit/gram powder 1 appl topical BID Qty: 15 0RF hydrocortisone [Anti-Itch (HC)] 1 % lotion 1 appl topical BID PRN (Reason: itching) Qty: 120 0RF No Action hydrocodone-acetaminophen 5-325 mg tablet 1 tab PO Q8H PRN (Reason: pain) Qty: 7 0RF acetaminophen-codeine 300-30 mg tablet 1 tab PO Q6H PRN (Reason: pain (scale score 7-10)) 3 Days Qty: 9 0RF prednisone 20 mg tablet 20 mg PO DAILY 12 Days Qty: 26 0RF Rx Instructions: Take 3 tablets for 5 days THEN; Take 2 tablets for 4 days THEN; Take 1 tablet for 3 days doxycycline hyclate 100 mg tablet 100 mg PO BID 7 Days Qty: 14 0RF albuterol sulfate 90 mcg/actuation HFA aerosol inhaler 1 inh inhalation QID PRN (Reason: shortness of breath or wheezing) Qty: 8.5 0RF azithromycin 250 mg tablet 250 mg PO DAILY 4 Days Qty: 4 0RF Rx Instructions: start on day 2 of therapy Paxlovid 300 mg (150 mg x 2)-100 mg tablets,dose pack See Rx Instructions .ROUTE .COMPLEX Qty: 30 0RF Rx Instructions: take TWO 150 mg tablets of nirmatrelvir with ONE 100 mg tablet of ritonavir twice daily for 5 days Referrals: Hemant Li MD [Primary Care Provider] - 2 days Stand Alone Forms: Work/School Release Interventions: ED Discharge Assessment Last Done: 11/12/22 12:26 Discharge Date/Time: 11/12/22 12:28
[2022-11-12 11:11] VITALS: BP 120/81; PULSE 74; RESP 16; TEMP 36.5; O2SAT 96; BMI 26.5
== END 2022-11-12 12:28 | disposition home or self-care (01) ==
PROVIDERS: Emergency Provider Student in an Organized Health Care Education/Training Program; PCP Family Medicine
DX: R21 Rash and other nonspecific skin eruption (principal); U07.1 COVID-19; M32.9 Systemic lupus erythematosus, unspecified; Z79.60 Long term (current) use of unspecified immunomodulators and immunosuppressants
CPT/HCPCS: 99282

== ENCOUNTER 2022-11-24 14:02 | Emergency (ER) | payer OTHER, SELFPAY | END 2022-11-24 15:01 | disposition left against medical advice (07) | PROVIDERS: Emergency Provider Emergency Medicine; PCP Family Medicine | DX: R21 Rash and other nonspecific skin eruption (principal) ==